=== PATIENT | male | born 1935 | race Caucasian/White ===

== ENCOUNTER 2019-08-18 10:58 | Outpatient (CLI) | payer MEDICARE ==
[~2019-08-18] VITALS: Ht 177.8 cm; Wt 94.1 kg
--- NOTE | ~2019-08-18 | HEMODYNAMI ---
PATIENT:TONY MYERS MEDICAL RECORD: [id number] : 31 LOCATION:[facility] ADMISSION DATE: 08/18/19 Generatedon:08/18/201914:41 Patient name: TONY MYERS Patient #: [id number] SSN: : 1935 Date of study: 08/18/2019 Page: Of Hemodynamic Procedure Report Patient Data Patient Demographics Procedure consent was obtained First Name: TONY Gender: Male Last Name: LUCIA : 1935 Patient #: [id number] Age: 84 year(s) Race: Unknown Additional ID: [id number] Contact details Address: [place] [address] State: [place] City: [place] Zip code: [address] Past Medical History Allergies: No known allergies Admission Admission Data Admission Date: 08/18/2019 Admission Time: 10:58 Arrival Date: 08/18/2019 Arrival Time: 13:00 Admit Source: Other Insurance Payor: Medicare [facility] #: [id number] Height (in.): 61 BSA: 1.94 (m2) Height (cm.): 154.94 BMI: 40.43 (kg/m2) Weight (lbs.): 214 Weight (kg.): 97.07 Lab Results Lab Result Date: 08/18/2019 Lab Result Time: 0:00 Biochemistry Name Units Result Min Max BUN mg/dl 20 --(----)*- 7 18 Creatinine mg/dl 2 --(----)-* 0.6 1.3 eGFR ml/min 34 *-(----)-- 90 120 NONAFRICAN CBC Name Units Result Min Max Hematocrit % 36.6 *-(----)-- 42 54 Hemoglobin g/dl 12.2 *-(----)-- 13.5 17.5 Procedure Procedure Types Cath Procedure Diagnostic Procedure PPM/ICD PPM Dual Implant Sedation Charges Moderate Sedation up to 30 minutes Procedure Description Procedure Date Procedure Date: 08/18/2019 Procedure Start Time: 14:03 Procedure End Time: 14:38 Procedure Staff Name Function Nicholas Sher MD Performing Physician Hugo Chu MD Assisting physician Kaila Villa RT Scrub Thuan Teran RN Nurse Tatum Sandoval RT Monitor Indication Sick Sinus Syndrome Procedure Data Cath Procedure Fluoroscopy Diagnostic fluoroscopy Total fluoroscopy Time: 3.5 time: 3.5 min min Diagnostic fluoroscopy Total fluoroscopy dose: dose: 123.35 mGy 123.35 mGy Estimated blood loss: 10 ml Procedure Complications No complications Procedure Medications Medication Administration Route Dosage 0.9% NaCl I.V. 100 ml/hr Oxygen etCO2 Nasal cannula 2 l/min Lidocaine 1% added to field 20 Ancef (1Gm/50ml NS) I.V.P.B 1 g Ancef Irrigation 1 g (1gm/500ml NS) Versed I.V. 2 mg Fentanyl I.V. 100 mcg Versed I.V. 1 mg Versed I.V. 1 mg Hemodynamics Rest BSA: 1.94 (m2) HGB: 12.2 (g/dl) O2 Consumption: Estimated: 218.6 (ml/min) O2 Con sumption indexed: Estimated:112.68 (ml/min/m) Heart Rate: 68 (bpm) Snapshots Pre Cath Intra NCS Post Cath Vital Signs Time Heart Resp SPO2 etCO2 NIBP (mmHg) Rhythm Pain Sedation Rate (ipm) (%) (mmHg) Status Level (bpm) 13:41:23 69 13 100 27.5 157/83(118) NSR 0 (11) 10(A) , No pain 13:45:41 74 16 100 0 161/81(142) NSR 0 (11) 10(A) , No pain 13:50:01 66 14 100 0 147/77(121) NSR 0 (11) 10(A) , No pain 13:54:17 67 10 100 1.4 151/72(124) NSR 0 (11) 10(A) , No pain 13:58:39 63 18 98 0 127/60(94) NSR 0 (11) 10(A) , No pain 14:02:51 74 19 99 32 127/66(106) NSR 0 (11) 10(A) , No pain 14:06:59 63 14 98 32.7 121/63(111) NSR 0 (11) 10(A) , No pain 14:11:07 70 14 94 0 135/72(96) NSR 0 (11) 9(A) , No pain 14:15:21 90 11 97 0.7 122/69(96) NSR 0 (11) 9(A) , No pain 14:19:28 79 14 98 0 136/71(99) NSR 0 (11) 10(A) , No pain 14:23:42 71 12 99 0 134/71(108) Paced 0 (11) 9(A) , No pain 14:27:54 74 11 97 0 129/73(108) Paced 0 (11) 9(A) , No pain 14:32:02 75 12 100 0 138/79(125) Paced 0 (11) 9(A) , No pain 14:36:12 77 13 99 0 152/87(118) Paced 0 (11) 9(A) , No pain Medications Time Medication Route Dose Verified Delivered Reason Notes Effectiv eness by by 13:48:28 0.9% NaCl I.V. 100 Thuan Thuan Per ml/hr Parul Teran physician RN RN 13:48:37 Oxygen etCO2 2 Thuan Thuan for low 02 Nasal l/min Lorigan Lorigan sats cannula RN RN 13:49:08 Lidocaine added 20ml Thuan Thuan for local 1% to vial Lorigan Lorigan anesthetic field ( x 2 RN RN ) 13:50:52 Ancef I.V.P.B 1 g Thuan Thuan Per (1Gm/50ml Parul Teran physician NS) RN RN 13:51:19 Ancef Topical 1 g Thuan Thuan used for Irrigation ( added Lorigan Lorigan procedure (1gm/500ml to RN RN NS) field ) 14:03:18 Versed I.V. 2 mg Thuan Thuan for Lorigan Lorigan sedation RN RN 14:03:26 Fentanyl I.V. 100 Thuan Thuan for mcg Lorigan Lorigan sedation RN RN 14:06:35 Versed I.V. 1 mg Thuan Thuan for Lorigan Lorigan sedation RN RN 14:20:02 Versed I.V. 1 mg Thuan Thuan for Lorigan Lorigan sedation RN administrative support specialist Log Time Note 12:27:25 Diagnostic Cath Status : Elective 12:27:59 Indication : Sick Sinus Syndrome 12:28:20 Informed consent obtained and on chart 12:29:30 Arrival Date: 08/18/2019 1:00:00 PM 12:30:11 Admit Source: Other 12:30:15 Insurance Payor : Medicare 13:24:44 Patient Height : 61 inches 13:24:59 Patient Weight : 214 lbs 13:30:00 Kaila CARLSON(R) sent for patient. Start room use. 13:38:12 Lab Result : eGFR NONAFRICAN 34 ml/min 13:38:12 Lab Result : Hemoglobin 12.2 g/dl 13:38:12 Lab Result : Creatinine 2 mg/dl 13:38:12 Lab Result : BUN 20 mg/dl 13:38:12 Lab Result : Hematocrit 36.6 % 13:38:29 Patient allergic to No known allergies 13:38:46 Procedure Status PPM/ Gen Change/ Lead Revision/ Temp. 13:39:16 Time tracking: Regular hours (M-F 7:00 - 5:00) 13:39:20 Plan of Care:Hemodynamics will remain stable., Cardiac rhythm will remain stable., Comfort level will be maintained., Respiratory function will remain adequate., Patient/ family verbilizes understanding of procedure., Procedure tolerated without complication., Recovers from procedure without complications.. 13:39:25 Patient received from Pre/Post Procedure Room to CCL 3 Alert and oriented. Tansferred to table in Supine position. 13:39:27 Warm blankets applied, and kristy hugger turned on for patient comfort. 13:39:27 Correct patient and procedure confirmed by team. 13:39:28 Correct patient and procedure confirmed by team. 13:39:29 ECG and BP/O2 sat monitors applied to patient. 13:39:31 Vital chart was started 13:39:42 H&P Date Dictated: 08/15/2019 Within 30 days and on chart.. 13:39:43 Pre-procedure instructions explained to patient. 13:39:44 Pre-op teaching completed and patient verbalized understanding. 13:39:45 Family in waiting room. 13:39:47 Patient NPO since Midnight. 13:39:59 Is the patient allergic to Iodine/contrast media? No. 13:40:00 Was the patient premedicated? N/A 13:40:02 Is patient on blood thinner?No 13:40:04 Patient diabetic? No. 13:40:06 If diabetic: On Metformin? N/A 13:40:15 Patient not . Patient is over age 55. 13:40:17 ----Pre-sedation anethsthesia assessment.---- 13:40:21 Previous problem with sedation/anesthesia? No ? 13:40:22 Snore? Yes 13:40:23 Sleep apnea? Yes 13:40:24 Deviated septum? No 13:40:25 Opens mouth fully? Yes 13:40:26 Sticks out tongue? Yes 13:40:30 Airway obstruction? No ? 13:40:31 Dentures? No ? 13:40:36 Patient pain scale 0/10 ?. 13:40:48 IV patent on arrival in right antecubital with 0.9% NaCl at [facility]. 13:40:54 Lab results completed and on chart. 13:40:57 Stress Test: no; N/A ? 13:41:07 Left chest area was prepped with chlora-prep and draped in sterile fashion 13:41:08 Alarms reviewed by R. N. 13:41:09 Sharps counted by scrub and verified by R.N. 13:41:14 Use device set KARLA PPM 13:41:16 2-0 Ticron Multipack ([id number]) opened to sterile field. 13:41:17 3-0 Vicryl Single Pack [id number] opened to sterile field. 13:41:17 5-0 Monocryl PS2 [id number] opened to sterile field. 13:41:18 Cautery Tip Piece Meat Trimmer opened to sterile field. 13:41:19 Cautery Pushbutton Pencil opened to sterile field. 13:41:19 Mepilex Dressing (947949) opened to sterile field. 13:42:03 Baseline sample Acquired. 13:42:06 Full Disclosure recording started 13:42:14 Rhythm: sinus bradycardia 13:47:42 Medtronic it sales representative SAMANTHA GRANGER present for procedure. 13:48:28 0.9% NaCl 100 ml/hr I.V. was administered by Thuan Teran RN; Per physician; Verbal order read back and verified. 13:48:37 Oxygen 2 l/min etCO2 Nasal cannula was administered by Thuan Teran RN; for low 02 sats; Verbal order read back and verified. 13:49:08 Lidocaine 1% 20ml vial ( x 2 ) added to field was administered by Thuan Teran RN; for local anesthetic; Verbal order read back and verified. 13:50:52 Ancef (1Gm/50ml NS) 1 g I.V.P.B was administered by Thuan Teran RN; Per physician; Verbal order read back and verified. 13:51:19 Ancef Irrigation (1gm/500ml NS) 1 g Topical ( added to field ) was administered by Thuan Teran RN; used for procedure; Verbal order read back and verified. 14:00:01 Pre sharps counted by scrub and verified by RN: Sutures: 7; Sponges: 5; Stick needles: 2; Skin needles: 2; Blade: 1; Cautery: 1 14:00:47 Grounding pad site Left thigh. 14:00:50 Grounding pad site free from injury. 14:01:13 Physician arrived 14:01:14 --------ALL STOP TIME OUT------ 14:01:15 Final Timeout: patient, procedure, and site verified with staff and physician. All members of the team are in agreement. 14:01:20 Left chest site verified by team. 14:01:34 Fire Safety Assessment: A--An alcohol-based skin anteseptic being used preoperatively., B--The operative or invasive procedure is being performed above the xiphoid process or in the oropharynx., C--Open oxygen or nitrous oxide is being used., E--There are other possible contributors. 14:02:50 Physical assessment completed. ASA score P 2 - A patient with mild systemic disease as per Nicholas Sher MD. 14:03:00 Sedation plan: IV Moderate Sedation Medication:Versed, Fentanyl 14:03:06 Procedure started. 14:03:15 Lidocaine 1% was administered to left subclavicular area by Hugo Chu MD . 14:03:18 Versed 2 mg I.V. was administered by Thuan Teran RN; for sedation; Verbal order read back and verified. 14:03:26 Fentanyl 100 mcg I.V. was administered by Thuan Teran RN; for sedation; Verbal order read back and verified. 14:05:21 Incision made to left subclavicular area. 14:05:25 Generator pocket made/opened. 14:06:35 Versed 1 mg I.V. was administered by Thuan Teran RN; for sedation; Verbal order read back and verified. 14:07:39 Left subclavian vein accessed with 7Fr Peel Away Sheath. 14:07:58 Left subclavian vein accessed with 7Fr Peel Away Sheath. 14:08:[address] Generator [id number] opened to sterile field. 14:08:17 Medtronic 4074-52 PPM Lead opened to sterile field. 14:08:17 Medtronic 4574-45 PPM Lead opened to sterile field. 14:11:21 Ventricular lead inserted and advanced. 14:11:27 Atrial lead inserted and advanced. 14:11:37 Ventricular lead positioned. 14:11:44 Atrial lead positioned. 14:16:13 Ventricular lead tested. 14:16:37 Atrial lead tested. 14:20:02 Versed 1 mg I.V. was administered by hTuan Teran RN; for sedation; Verbal order read back and verified. 14:20:43 Peel-a-way sheath was split and removed. 14:20:53 PPM Dual was attached to lead(s) and inserted into pocket. 14:21:15 PPM Dual was interrogated. 14:21:21 PPM Dual was inserted subcutaneously to left chest. 14:22:18 Device pocket was irrigated with Ancef. 14:26:28 Atrial lead attachment was completed with 2-0 ticron. 14:26:36 Ventricular lead attachment was completed with 2-0 ticron. 14:28:08 Subcutaneous closure was completed with 3-0 vicryl plus. 14:28:19 Skin closure was completed with 5-0 monocryl. 14:29:31 Generator was sutured in place with 2-0 ticron. 14:31:25 Parameters-- Generator: Mode: DDDR. Lower Rate: 60bpm. Upper Rate: 120bpm. 14:32:17 Post sharps counted by scrub and verified by RN: Sutures: 7; Sponges: 5; Stick needles: 2; Skin needles: 2; Blade: 1; Cautery: 1 14:32:24 Parameters--Ventricular P/R Wave: 3.9mV. Current: 0.3mA; Threshold: 0.3V; Impedence: 1280OHMS. 14:32:49 Parameters--Atrial P/R Wave: 2.6mV. Current: 0.4mA; Threshold: 0.3V; Impedence: 617OHMS. 14:32:56 Lt Chest incision was dressed with Mepilex dressing. 14:33:04 Procedure ended.(Physican Out) 14:33:13 Fluoroscopy time 03.50 minutes. 14:33:25 Flurop Dose total: 123.35 14:33:25 Fluoroscopy dose: 123.35 mGy 14:33:43 Dose Area Product 1659.77 mGy/cm. 14:33:49 Sharps counted by scrub and verified by R.N. 14:35:08 Insertion/operative site no bleeding no hematoma. 14:35:23 Post Chest area:stable 14:35:30 Post-procedure physical assessment completed. ASA score P 2 - A patient with mild systemic disease as per Nicholas Sher MD. 14:36:19 Post procedure rhythm: paced 14:36:25 Estimated blood loss: 10 ml 14:36:27 Post procedure instruction explained to patient.Patient verbalizes understanding. 14:36:29 Patient needs reinforcement of post procedure teaching. 14:37:19 Procedure type changed to Cath procedure, Diagnostic procedure, PPM/ICD, PPM Dual Implant, Sedation Charges, Moderate Sedation up to 30 minutes 14:37:23 Procedure and supply charges have been captured, reviewed, submitted and are correct. 14:37:58 Procedure Complication : No complications 14:38:05 Vital chart was stopped 14:38:19 Operative report dictated upon procedure completion. 14:38:20 See physician's report for complete and final results. 14:38:26 Report given to Pre/Post Procedure Room. 14:38:30 Patient transfered to Pre/Post Procedure Room with Stretcher. 14:38:33 Procedure ended. 14:38:33 Full Disclosure recording stopped 14:38:36 End room use (Document Last) Device Usage Item Name Manufacture Quantity Catalog Hospital Part Current Minima l Lot# / Number Charge Number Stock Stock Serial# Code 2-0 Ticron Ethicon 0 [id number] 193215 98675 [id number] 5 Multipack ([id number]) 3-0 Vicryl Ethicon 1 [id number] 745651 126816 084803 5 Single Pack [id number] 5-0 Monocryl Ethicon 1 Y495G 858231 849008 766014 5 PS2 Y495G Cautery Tip Microtek 1 [id number] 997141 075754 365810 5 Piece Meat Trimmer [employer] Cautery Microtek 1 [id number] 001539 77585 201586 5 Pushbutton [employer] Inc[employer] Pencil Mepilex Cardinal 1 456239 310215 030143 748749 5 Dressing Health ([id number]) Medtronic Medtronic 1 4074-52 203364 835062 722187 5 [id number] 4074-52 PPM 05-09-2021 Lead Medtronic Medtronic 1 4574-45 420243 232446 444786 5 [id number] 4574-45 PPM 05-13-2021 Lead Medtronic Medtronic 1 [id number] 757430 5130468 [id number] [id number] 01-02-2021 Generator W1DR01 Signature Audit [place] Stage Time Signature Unsigned Intra-Procedure 08/18/2019 Tatum 2:39:46 PM Jaime RT(R) (CV) Intra-Procedure 08/18/2019 Thuan 2:40:18 PM Parul RAMIREZ Intra-Procedure 08/18/2019 Nicholas Canseco 2:40:[address] [facility] [address] [place] [address]
--- NOTE | ~2019-08-18 | OP ---
PATIENT NAME: TONY MYERS MEDICAL RECORD: [id number] :31 LOCATION:D.CAT ADMISSION DATE: SURGEON: HUGO ACOSTA MD DATE OF OPERATION: 08/18/2019 PREOPERATIVE DIAGNOSES: 1. Sick sinus syndrome with pauses. 2. Hypertension. POSTOPERATIVE DIAGNOSES: 1. Sick sinus syndrome with pauses. 2. Hypertension. PROCEDURE: 1. Left subclavian vein dual lead pacemaker placement. 2. Fluoroscopic interpretation. SURGEON: Hugo Acosta MD REPORT OF PROCEDURE: The patient's left chest was prepped and draped in sterile fashion. A 20 mL of 1% lidocaine with epinephrine was infused into the surrounding tissues. A skin incision was made on the left superior lateral chest and a subcutaneous pouch was made over the pectoral fascia. Needle was used to cannulate the left subclavian vein and guidewires were advanced with ease. Using fluoroscopic guidance, we were able to see that the wires were in good position in the venous system. Dilator trocar devices were placed over the wires and the wires and dilators were removed. The leads were advanced through the trocars until they rested in the superior vena cava. At this point, Dr. Campoverde positioned the leads appropriately in the atrium and ventricle. Once the leads were noted to be in good position and functioning appropriately, then they were sutured into place with 2-0 Ti-Cron. The leads were affixed to the pacemaker, which was placed in the subcutaneous pouch and sutured to the pectoral fascia using a single interrupted 2-0 Ti-Cron. The wound was then irrigated out with antibiotic solution. The subcutaneous tissues were reapproximated with interrupted 3-0 Vicryl and the skin was closed with running subcutaneous 5-0 Monocryl. COMPLICATIONS: None. CONDITION: Stable. ANESTHESIA: Local MAC. BLOOD LOSS: Minimal. TRANSINT:[id number] Voice Confirmation ID: [id number] DOCUMENT ID: [id number] OPERATIVE REPORT [id number] QUINCYPATRICIAHUGO BINGHAM MD CC: [id number] DICTATION DATE: 08/18/19 1431 STICK PULLER: 08/18/19 1655 [facility] [address] [place] [address]
[2019-08-18] MEDS ORDERED: FLUTICASONE PRO16 GM NASAL (11:26)
[2019-08-18] MEDS ORDERED: PROTONIX40 MG PO (11:26)
[2019-08-18] MEDS ORDERED: CYCLOBENZAPRINE5 MG PO (11:28)
[2019-08-18] MEDS ORDERED: NAMENDA10 MG PO (11:28)
[2019-08-18] MEDS ORDERED: FLOMAX0.4 MG PO (11:29)
[2019-08-18] MEDS ORDERED: LASIX40 MG PO (11:30)
[2019-08-18] MEDS ORDERED: MIRAPEX0.5 MG PO (11:30)
[2019-08-18] MEDS ORDERED: K-TAB10 MEQ PO (11:31)
[2019-08-18] MEDS ORDERED: MIRAPEX0.25 MG PO (11:31)
[2019-08-18] MEDS ORDERED: REMERON15 MG PO (11:31)
[2019-08-18] MEDS ORDERED: DONEPEZIL HCL10 MG PO (11:32)
[2019-08-18] MEDS ORDERED: GABAPENTIN100 MG PO (11:32)
[2019-08-18] MEDS ORDERED: MELATONIN10 M1 PO (11:33)
[2019-08-18] MEDS ORDERED: LISINOPRIL5 MG PO (11:33)
[2019-08-18] MEDS ORDERED: HYDROCODON-ACE1 EA10 PO (11:34)
[2019-08-18] MEDS ORDERED: ALBUTEROL SULF8.5 GM INH (11:35)
[2019-08-18 11:42] VITALS: BP 106/58; Ht 177.8 cm; Wt 94.1 kg
[2019-08-18 12:06] LABS: BASOPHILS 0.3 % (0-2); EOSINOPHILS 2.9 % (0-7); HEMATOCRIT 36.6 % (42.0-54.0); HEMOGLOBIN 12.2 g/dL (13.5-17.5); IMMATURE GRANULOCYTES 0.1 % (0-5); LYMPHOCYTES 40.5 % (15-50); MCH 32.4 pg (26.0-34.0); MCHC 33.3 g/dL (31.0-37.0); MCV 97.3 fL (80.0-100.0); MEAN PLATELET VOLUME 9.9 fL (7.4-10.4); MONOCYTES 9.7 % (2-11); NEUTROPHILS 46.5 % (40-80); PLATELET COUNT 139 10x3/uL (130-400); RBC 3.76 10x6/uL (4.20-6.10); RDW 13.6 % (11.5-14.5); WBC 8.6 10x3/uL (4.8-10.8)
[2019-08-18 12:19] LABS: ANION GAP 13.2 mmol/L (8-16); CALCIUM 8.3 mg/dL (8.5-10.1); CARBON DIOXIDE 26.4 mmol/L (21.0-32.0); POTASSIUM - SERUM 4.6 mmol/L (3.5-5.1)
[2019-08-18 12:22] LABS: APTT 28.1 SECONDS (22.8-39.4); INR 1.01 (0.85-1.17); PROTIME 13.2 SECONDS (11.6-15.0)
--- NOTE | 2019-08-18 14:45 | NUR ---
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 MONITORS ESTAB. CHILDREN AT BS. SEE ENVIRONMENTAL STUDIES FACULTY MEMBER. ALARMS ON AND C/L IN REACH.
--- NOTE | 2019-08-18 15:00 | NUR ---
PT RESTING QUIETLY. CM - PACED AT 70, B/P 141/74. PPM SITE C/D/I. URINAL PROVIDED AND PT ASSISTED WITH USE. ALARMS ON AND C/L IN REACH.
--- NOTE | 2019-08-18 15:16 | NUR ---
PCXR DONE. SANDWICH TRAY AND SPRITE PROVIDED. VSS. C/L IN REACH.
--- NOTE | 2019-08-18 15:30 | NUR ---
PT ATE ALL OF SANDWICH, DENIES NEEDS. VSS. L CHEST DSG C/D/I. C/L IN REACH.
--- NOTE | 2019-08-18 15:45 | NUR ---
PT RESTING QUIETLY, HR 72, V-PACED, WITH OCC AV-PACED BEATS NOTED. ALARMS ON AND C/L IN REACH.
--- NOTE | 2019-08-18 16:13 | NUR ---
PT WATCHING TV, DENIES NEEDS. VSS. L CHEST DSG C/D/I.
--- NOTE | 2019-08-18 16:30 | NUR ---
PT VOIDED 200CC CLEAR, YELLOW URINE. VSS, DENIES NEEDS. C/L IN REACH.
--- NOTE | 2019-08-18 17:15 | NUR ---
PIV D/C'D INTACT, DSG APPLIED. ALL DISCHARGE INSTRUCTIONS REVIEWED WITH CHILDREN - COPY WITH THEM TO GIVE TO ASSISTED LIVING STAFF. PT ASSISTED WITH GETTING DRESSED. ARM SLING IN PLACE - IMPORTANCE OF L ARM RESTRICTIONS REINFORCED WITH PT.
--- NOTE | 2019-08-18 17:26 | NUR ---
PT D/C'D TO PRIVATE VEHICLE VIA . PT HAS ALL BELONGINGS AND PAPERWORK.
--- NOTE | 2019-08-22 11:19 | OP ---
PATIENT NAME: TONY MERINO MEDICAL RECORD: [id number] :33 LOCATION:D.CAT ADMISSION DATE: SURGEON: MILADIS SORENSON MD DATE OF OPERATION: 08/18/2019 PROCEDURE: Lead portion of permanent pacemaker placement. SURGEON: Hugo Chu MD INDICATION: Sick sinus syndrome with pauses greater than 3 seconds. DESCRIPTION OF PROCEDURE: After left subclavian was cannulated via modified Seldinger technique via Dr. Chu, first, under fluoroscopic guidance, I placed the RV lead in the RV apex without difficulty. After adequate R waves and thresholds were obtained, the right atrial lead was placed in the right atrial appendage without difficulty. After adequate P waves and thresholds were obtained, the leads were attached to appropriate poles of the generator and the pocket was closed via Dr. Chu. IMPRESSION: Successful lead portion of permanent pacemaker placement on Tony Merino. ESTIMATED BLOOD LOSS: Normal. DISPOSITION: To floor, stable. COMPLICATIONS: None. TRANSINT:[id number] Voice Confirmation ID: [id number] DOCUMENT ID: [id number] MILADIS SORENSON MD at 1119 CC: [id number] DICTATION DATE: 08/18/19 1428 PROPERTY WORKER: 08/18/19 1637 DEP CLI 08/18/19 [id number] [place] [address]
== END 2019-08-18 17:27 | disposition home or self-care (01) ==
LOC: D.CATH 10:58
PROVIDERS: ATTEND Internal Medicine Interventional Cardiology
DX: I49.5 Sick sinus syndrome (principal); I10 Essential (primary) hypertension; I44.1 Atrioventricular block, second degree

== ENCOUNTER 2019-12-31 21:59 | Inpatient (IN) | payer MEDICARE ==
[~2019-12-31] VITALS: Ht 177.8 cm; Wt 95.9 kg
--- NOTE | ~2019-12-31 | EC ---
PATIENT:TONY MYERS DATE OF SERVICE: 01/01/20 SEX: M MEDICAL RECORD: [id number] DATE OF : [birth year] LOCATION:D.M2 D.212 AGE OF PATIENT: 84 ADMISSION DATE: 01/01/20 REFERRING PHYSICIAN: INTERPRETING PHYSICIAN: ILYA WALKER MD ECHOCARDIOGRAM REPORT ECHO CHARGES 4 ECHO COMPLETE Date: 01/01/20 CLINICAL DIAGNOSIS: CHF HX OF PACEMAKER ECHOCARDIOGRAPHIC MEASUREMENTS (adult normal given) AC root (d.<3.7cm) 3.3 cm LV Septum d (<1.2 cm> 1.5 cm Valve Excursion 1.5 cm LV Septum (systole) 1.7 cm Left Atria (s.<4.0cm> 3.9 cm LVPW d(<1.2cm) 1.4 cm RV (d.<2.3cm) 4.2 cm LVPW (sytole) 1.7 cm LV diastole(<5.6CM) 5.9 cm MV E-F(>70mm/sec) cm LV systole 3.9 cm LVOT Diameter 1.8 cm MV exc.(>10mm) 1.4 cm Est.ejection fraction (50-75%) % DOPPLER: LVIT cm/sec A 89.0 cm/sec E 68.0 cm/sec LA cm/sec RVSP 33 mmHg LVOT 126 cm/sec AOP1/2T 599 m/s Asc. Ao 247 cm/sec RVOT 79 cm/sec RA cm/sec PA 104 cm/sec AV Gradient Peak 24.32mmHg AV Mean 14.01mmHg AV Area 2.1 cm MV Gradient Peak 5.52 mmHg MV Mean 2.26 mmHg MV Area cm COMMENTS: Mixer Machine Feeder: 2 ANGIE SMITH Radio Survey Worker: 4 Dr. Walker TAPE# PACS Pericardial Effusion N DATE OF SERVICE: PROCEDURE: Transthoracic echocardiogram. FINDINGS: The left ventricle is mildly dilated with left ventricular hypertrophy. The overall ejection fraction is 45% to 50%. There are no obvious regional wall motion abnormalities. The patient has inflow characteristics consistent with diastolic dysfunction. Left atrium appears to be normal size and function. ECHOCARDIOGRAM REPORT [id number] TONY MYERS The aortic valve has thickened aortic leaflets. There is mildly elevated peak gradient across the aortic valve. There is mild aortic insufficiency. The valve appears to be at least mildly stenotic if not moderately stenotic. The mitral valve has normal structure and function. Tricuspid valve has normal structure and function. There is trace to mild tricuspid regurgitation. The right ventricular systolic pressure is 33 mmHg. There is a pacer wire and artifact seen. The right ventricle is dilated with normal function. Right atrium is dilated. There is no significant pericardial effusion. Overall, this is a difficult study. Aortic valve was not well demonstrated. Depending on clinical situation further testing may be helpful, but by visual estimate the patient's aortic stenosis does not appear to be severe. TRANSINT:[id number] Voice Confirmation ID: [id number] DOCUMENT ID: [id number] ILYA WALKER MD CC: [id number] DICTATION DATE: 01/01/20 1616 GOVERNMENT RELATIONS ANALYST: 01/01/20 2347 ADM IN [facility] [address] [place] [address]
[~2019-12-31 21:59] MED LIST: ALBUTEROL SULF8.5 GM INH; CYCLOBENZAPRINE5 MG PO; DONEPEZIL HCL10 MG PO; FLOMAX0.4 MG PO; FLUTICASONE PRO16 GM NASAL; GABAPENTIN100 MG PO; HYDROCODON-ACE1 EA10 PO; K-TAB10 MEQ PO; LASIX40 MG PO; LISINOPRIL5 MG PO; MELATONIN10 M1 PO; MIRAPEX0.25 MG PO; MIRAPEX0.5 MG PO; NAMENDA10 MG PO; PROTONIX40 MG PO; REMERON15 MG PO
[2019-12-31 22:26] LABS: BASOPHILS 0.2 % (0-2); EOSINOPHILS 3.8 % (0-7); HEMOGLOBIN 10.2 g/dL (13.5-17.5); IMMATURE GRANULOCYTES 1.4 % (0-5); LYMPHOCYTES 28.2 % (15-50); MCH 32.4 pg (26.0-34.0); MCHC 32.9 g/dL (31.0-37.0); MCV 98.4 fL (80.0-100.0); MEAN PLATELET VOLUME 9.9 fL (7.4-10.4); MONOCYTES 10.7 % (2-11); NEUTROPHILS 55.7 % (40-80); PLATELET COUNT 117 10x3/uL (130-400); RBC 3.15 10x6/uL (4.20-6.10); RDW 13.6 % (11.5-14.5); WBC 12.9 10x3/uL (4.8-10.8)
[2019-12-31 22:33] LABS: CALC OSMOLALITY 295 mosm/kg (275-300); CARBON DIOXIDE 22.5 mmol/L (21.0-32.0); CHLORIDE - SERUM 101 mmol/L (98-107); CREATININE - SERUM 7.5 mg/dL (0.6-1.3); GLUCOSE 128 mg/dL (74-106); POTASSIUM - SERUM 4.8 mmol/L (3.5-5.1); SODIUM 133 mmol/L (136-145); UREA NITROGEN 91 mg/dL (7-18); eGFR NON AFRICAN AMERICAN 7 mL/min (90-120)
[2019-12-31 22:34] LABS: APTT 28.3 SECONDS (22.8-39.4)
[2019-12-31 22:38] LABS: INR 1.08 (0.85-1.17)
[2019-12-31 22:49] LABS: ALBUMIN 2.7 g/dL (3.4-5.0); ALKALINE PHOSPHATASE 110 U/L (30-120); ALT (SGPT) 18 U/L (10-68); BILIRUBIN - TOTAL 0.25 mg/dL (0.2-1.3); CKMB 2.1 U/L (0.0-3.6); CREATINE KINASE 67 UL (21-232); PRO BNP 493 pg/mL (0-450); PROTEIN - SERUM 6.1 g/dL (6.4-8.2)
[2019-12-31 22:51] LABS: TROPONIN-I < 0.017 ng/mL (0.000-0.060)
[2019-12-31 23:11] LABS: C-REACTIVE PROTEIN 2.9 mg/dL (0.0-0.9)
[2019-12-31 23:42] VITALS: BP 82/41
[2020-01-01] VITALS (7 sets, daily range): BP systolic 94–121; BP diastolic 43–55; BMI 28.7
--- NOTE | 2020-01-01 02:13 | NUR ---
PT ARRIVED VIA STRETCHER FROM ER. NO DISTRESS NOTED. PT DENIED ANY DISCOMFORT. PT ALERT, ORIENTED TO PERSON, AND PLACE. REORIENTED TO TIME AND SITUATION. PACED RHYTHM PER CM HR 76. IV TO RFA SL. LUNGS DIMINISHED IN BASES BILAT. SR UP X2,CALL LIGHT WITHIN REACH AND BED ALARM ON.
--- NOTE | 2020-01-01 04:29 | NUR ---
PT RESTING WITH EYES CLOSED. RESP EVEN AND REGULAR. SR UP X2, CALL LIGHT WITHIN REACH AND BED ALARM ON.
[2020-01-01] MEDS ORDERED: METOPROLOL TART25 MG PO (04:47)
[2020-01-01] MEDS ORDERED: ROPINIROLE HCL2 MG PO (04:49)
[2020-01-01] MEDS ORDERED: TRAZODONE HCL150 MG PO (04:51)
[2020-01-01] MEDS ORDERED: ACETAMINOPHEN325 MG PO (04:55)
[2020-01-01] MEDS ORDERED: MIRALAX17 GM PO (04:56)
[2020-01-01] MEDS ORDERED: MILK OF MAGNESI30 ML PO (04:57)
--- NOTE | 2020-01-01 05:52 | NUR ---
PT INCONTINENT OF URINE AND STOOL INCONTINENT CARE DONE. PT TOLERATED ACTIVITY WELL. NEEDS MET; WILL CONTINUE TO MONITOR.
--- NOTE | 2020-01-01 07:00 | NUR ---
RECEIVED REPORT. ASSUMED CARE OF PATIENT. CALL LIGHT WITHIN REACH. PATIENT RESTING WITH EYES CLOSED. RESP EVEN AND UNLABORED. WHITE BOARD UPDATED, BEDSIDE SHIFT REPORT COMPLETE. NO DISTRESS.
--- NOTE | 2020-01-01 11:40 | NUR ---
SUPERVISOR ROUGH END AT BEDSIDE. NO DISTRESS. FRESH ICE WATER PROVIDED.
--- NOTE | 2020-01-01 12:35 | NUR ---
IV FLUIDS INITIATED AT THIS TIME. NO DISTRESS. LAB AT BEDSIDE FOR LAB DRAW. CALL LIGHT WITHIN REACH.
[2020-01-01 12:50] LABS: BASOPHILS 0.1 % (0-2); EOSINOPHILS 3.9 % (0-7); HEMATOCRIT 32.8 % (42.0-54.0); HEMOGLOBIN 10.6 g/dL (13.5-17.5); IMMATURE GRANULOCYTES 1.4 % (0-5); LYMPHOCYTES 29.1 % (15-50); MCH 31.8 pg (26.0-34.0); MCHC 32.3 g/dL (31.0-37.0); MCV 98.5 fL (80.0-100.0); MEAN PLATELET VOLUME 10.2 fL (7.4-10.4); NEUTROPHILS 55.5 % (40-80); PLATELET COUNT 124 10x3/uL (130-400); RBC 3.33 10x6/uL (4.20-6.10); RDW 13.6 % (11.5-14.5); WBC 9.9 10x3/uL (4.8-10.8)
[2020-01-01] MEDS ORDERED: HYDROCODON-ACE1 EA10 PO (12:58)
[2020-01-01 13:00] LABS: ANION GAP 16.8 mmol/L (8-16); CARBON DIOXIDE 22.6 mmol/L (21.0-32.0); CREATININE - SERUM 8.2 mg/dL (0.6-1.3); POTASSIUM - SERUM 5.4 mmol/L (3.5-5.1)
--- NOTE | 2020-01-01 16:00 | NUR ---
HAT FORMING MACHINE FEEDER AT BEDSIDE FOR US OF THYROID AT THIS TIME. NO DISTRESS.
--- NOTE | 2020-01-01 16:57 | NUR ---
ATTEMPTED TO COLLECT UA AT THIS TIME, SPECIMEN CONTAMINATED WITH STOOL.
--- NOTE | 2020-01-01 19:23 | NUR ---
INITIAL ROUNDS COMPLETED. ASSISTED PT TO BR. VOIDED 350CC OF YELLOW URINE. ASSISTED BACK TO BED. SR UP X2, CALL LIGHT WITHIN REACH AND BED AALRM ON.
[2020-01-01 19:52] LABS: BILIRUBIN NEGATIVE (NEGATIVE); GLUCOSE NEGATIVE (NEGATIVE); KETONE NEGATIVE (NEGATIVE); NITRITE NEGATIVE (NEGATIVE); UROBILINOGEN NORMAL (NORMAL)
[2020-01-01 20:03] LABS: CREATININE - URINE 99.8 mg/dL (30-125); PRO/CRE RATIO URINE 0.2 mg/g; PROTEIN - URINE 24.1 mg/dL (0.0-11.9)
--- NOTE | 2020-01-01 21:46 | HP ---
PATIENT: TONY MYERS MEDICAL RECORD: [id number] ACCOUNT: [id number] LOCATION:[address] : 31 ADMISSION DATE: 01/01/20 PCP: No PCP HISTORY AND PHYSICAL EXAMINATION DATE OF ADMISSION: 01/01/2020 CHIEF COMPLAINT: Weakness, shortness of breath, and atrial fibrillation. HISTORY OF PRESENT ILLNESS: This is an 84-year-old white male, who was brought from an assisted living facility in [place] via EMS yesterday afternoon/evening for increased weakness and shortness of breath. The patient was recently admitted to mt in a hospital earlier this week and diagnosed with aspiration pneumonia. He was discharged back to assisted living on . Reportedly done okay until yesterday when he started having increased weakness and shortness of breath. He was brought over via EMS and reportedly enroute, his blood pressure went down to 82/46, his heart rate was 122 with atrial fibrillation. By the time he arrived to the Emergency Department at [facility], his heart rate was 72 and regular with a paced rhythm. Workup in the Emergency Department, chest x-ray did not show anything acute. His D-dimer was a little elevated and a V/Q scan was done, it was negative for PE, but there was reportedly "significant airway disease", more on the left side. Most significant finding was BUN 91 and creatinine 7.5. Lactic acid was 1.1. ProBNP 493. He is admitted for further evaluation. PAST MEDICAL AND SURGICAL HISTORY: (Most of this is obtained from the son at bedside), he has osteoarthritis, degenerative disc disease throughout his spine, history of CHF, approximately 4 years ago. He is followed by [facility]. 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 He has restless leg syndrome, prostate cancer status post radiation therapy, a questionable history of Parkinson's disease. He has a diagnosis of restrictive lung disease, reflux, thrombocytopenia. He has a diagnosis of Alzheimer's dementia, depression, BPH. PAST SURGICAL HISTORY: Pacemaker in 08/18/2019 here at [facility]. He had right knee arthroscopy approximately 2 years ago and back surgery back in the 1960s. DRUG ALLERGIES: None known. HOME MEDICATIONS: He takes Protonix 40 mg every morning, Flonase nasal spray daily, Namenda 10 mg twice a day, Flexeril 5 mg twice a day, Flomax 0.4 twice a day, Lasix 40 mg once a day, potassium 10 mEq once a day, metoprolol tartrate 25 mg once a day, Requip 2 mg at bedtime, trazodone 50 mg at bedtime, gabapentin 200 mg at bedtime, Aricept 10 mg in the evening, melatonin 10 mg at bedtime, lisinopril 5 mg once a day. He gets hydrocodone 10 p.r.n. pain, albuterol inhaler p.r.n. wheeze, MiraLax p.r.n. constipation, milk of magnesia p.r.n., and Mucinex p.r.n. DRUG ALLERGIES: None known. SOCIAL HISTORY: He is , retired. Son says he was basically placed on disability due to a diagnosis of ALS back in the 1960s, but this was the wrong diagnosis. He lives in assisted living in [place] for about a year. HISTORY AND PHYSICAL [id number] TONY MYERS FAMILY HISTORY: Unknown. HABITS: Former smoker. REVIEW OF SYSTEMS: GENERAL: No major weight changes. HEENT: No particular sinus or allergy problems. RESPIRATORY: He has this diagnosis of restrictive lung disease. GASTROINTESTINAL: He has had some reflux. GENITOURINARY: History of prostate cancer treated with radiation, about 18 years ago, and enlarged prostate. MUSCULOSKELETAL: He has degenerative disc disease in his neck and down throughout his spine. He has arthritic aches and pains. NEUROLOGIC: He has a diagnosis of Parkinson's, though I see no tremor and is on no medicines for it right now. He has a history of dementia. PSYCHIATRIC: Possible depression. PHYSICAL EXAMINATION: VITAL SIGNS: Temperature 97.3, pulse 72, respirations 18, blood pressure 110/51, O2 sat is 100%. GENERAL: He is awake and alert. He does not appear in acute distress. He has some problems answering some questions. HEENT: Unremarkable. NECK: Supple. No JVD or bruit. HEART: Regular rate and rhythm. LUNGS: Fairly clear. ABDOMEN: Soft, flat, nontender. EXTREMITIES: No edema. NEUROLOGIC: Cranial nerves appear intact. No focal motor or sensory deficits. His memory is questionable. DIAGNOSTIC DATA: Chest x-ray single view showed pacemaker on the left. Heart is normal in size. Vascularity normal. No active disease. V/Q scan, negative for PE. There is a significant "airway disease", left greater than right. EKG shows paced rhythm, rate 72. LABORATORY DATA: D-dimer elevated at 0.84. CBC with a white count of 12,900, hemoglobin 10.2, hematocrit 31, platelets number 117,000. Basic metabolic panel: Sodium 133, potassium 4.8, chloride 101, CO2 of 22.5, BUN 91, creatinine 7.5, glucose 128, calcium 7.0, lactic acid 1.1. INR 1.08. Liver functions are normal. ProBNP 493. C-reactive protein 2.9. ASSESSMENT: 1. Acute renal failure. 2. Unsure of the patient's baseline creatinine. 3. Recent hospitalization for aspiration pneumonia in [facility]. 4. Four months status post pacemaker placement. 5. History of dementia. PLAN: We are trying to get records from the hospital in [place], the patient's son's works there and she is trying to get those results now. Nephrology has been consulted. Cardiology has been consulted. We need to see his baseline numbers. Near the end of the interview with the patient and his son, the son states he has been seeing the doctor in [place] and Dr. Conley's name did come up on some paperwork. We will check tomorrow to see if Dr. Conley has any HISTORY AND PHYSICAL [id number] TNOY MYERS records and if he is seeing him, we may have Dr. Conley's service assume the patient's care. I will check on that tomorrow. Other tests and procedures as warranted. ADDENDUM We have gotten some records from the [facility] showing his creatinine there ranged anywhere from 1.7 up to 2.0, which is about his baseline as far as we can see. The patient had a CT of his chest without contrast on 12/25/2019 showed enlarged heart, lung thompson appear clear at that time, but there was an incidental finding of a left thyroid mass/enlargement, recommended a followup ultrasound of that. These records are all going to be placed in patient's chart and I have reviewed these with Dr. Marie today. TRANSINT:[id number] Voice Confirmation ID: [id number] DOCUMENT ID: [id number] AMI ESCOBEDO MD at 2146 CC: [id number] DICTATION DATE: 01/01/20 1359 MARSHMALLOW RUNNER: 01/01/20 1617 ADM IN [facility] [address] [id number]
--- NOTE | 2020-01-01 22:25 | NUR ---
ASSESSMENT COMPLETED AT 1945 HRS. VSS. PACED RHYTHM PER CMHR 71. PT ALERT, ORIENTED TO PERON ONLY. REORIENTED TO PLACE, TIME AND SITUATION. FOLLOWS COMMANDS WELL. IV TO R FA WITH NS AT 75CC/HR. IV PATENT. LUNGS DIMINISHED IN BASES BILAT. FERNANDEZ. PALPABLE PERIPHERAL PULSES. PM MEDS GIVEN PER ORDERS. PT CURRENTLY RESTING WITH EYES CLOSED. RESP EVEN AND REGULAR. SR UP X2,CALL LIGHT WITHN REACH AND BED ALARM ON.
[2020-01-02 00:28] VITALS: BP 101/41
--- NOTE | 2020-01-02 02:51 | NUR ---
PT RESTING WITH EYES CLOSED. RESP EVEN AND REGULAR. SR UP X2, CALL LIGHT WITHIN REACH AND BED ALARM ON.
[2020-01-02 04:06] VITALS: BP 110/40
--- NOTE | 2020-01-02 04:27 | NUR ---
PT AWAKE, DENIES ANY DISCOMFORT. DENIES JOSEPH TO USE THE BATHROOM. SR UP X2,CALL LIGHT WITHIN REACH AND BED ALARM ON.
[2020-01-02 05:46] LABS: BASOPHILS 0.1 % (0-2); EOSINOPHILS 2.6 % (0-7); HEMATOCRIT 29.7 % (42.0-54.0); HEMOGLOBIN 9.6 g/dL (13.5-17.5); IMMATURE GRANULOCYTES 1.5 % (0-5); LYMPHOCYTES 26.9 % (15-50); MCH 31.7 pg (26.0-34.0); MCHC 32.3 g/dL (31.0-37.0); MEAN PLATELET VOLUME 10.1 fL (7.4-10.4); MONOCYTES 11.7 % (2-11); NEUTROPHILS 57.2 % (40-80); PLATELET COUNT 111 10x3/uL (130-400); RBC 3.03 10x6/uL (4.20-6.10); RDW 13.6 % (11.5-14.5); WBC 9.6 10x3/uL (4.8-10.8)
--- NOTE | 2020-01-02 06:18 | NUR ---
PT RESTED WELL DURNG SHIFT. VSS. PT DENIED ANY DISCOMFORT. NEEDS MET; WILL CONTINUE TO MONITOR.
[2020-01-02 06:24] LABS: ANION GAP 19.2 mmol/L (8-16); CARBON DIOXIDE 17.1 mmol/L (21.0-32.0); CREATININE - SERUM 8.3 mg/dL (0.6-1.3); MAGNESIUM - SERUM 2.1 mg/dL (1.8-2.4); POTASSIUM - SERUM 5.3 mmol/L (3.5-5.1)
[2020-01-02 06:25] LABS: PHOSPHOROUS 9.5 mg/dL (2.5-4.9)
[2020-01-02 06:27] LABS: CALCIUM 6.4 mg/dL (8.5-10.1)
--- NOTE | 2020-01-02 07:00 | NUR ---
RECEIVED REPORT. ASSUMED CARE OF PATIENT. CALL LIGHT WITHIN REACH. BED ALARM PATENT. BEDSIDE SHIFT REPORT COMPLETE. WHITE BOARD UPDATED. PATIENT RESTING IN BED WITH EYES CLOSED. RESP EVEN AND UNLABORED. NO DISTRESS.
--- NOTE | 2020-01-02 08:54 | NUR ---
CALLED DUE TO PATIENT IS FOLLOWED BY IN [facility] AND WOULD LIKE TO KNOW IF [facility] WILL ASSUME CARE OF THEIR CLINIC PATIENT. PAGED JEANNINE WOODS AND CURRENTLY WAITING FOR A RESPONSE SO THIS YOUTH OFFICER CAN CALL BACK AND LET HIM KNOW IF [facility] WILL ASSUME CARE OF THE PATIENT.
--- NOTE | 2020-01-02 10:22 | NUR ---
PATIENTS DAUGHTER IN LAW CALLED TO CHECK ON THE PATIENT. REPORT PROVIDED.
[2020-01-02 10:33] VITALS: BP 97/43
[2020-01-02 13:23] VITALS: Ht 177.8 cm; Wt 95.9 kg
[2020-01-02 14:24] VITALS: BP 107/44
--- NOTE | 2020-01-02 14:42 | NUR ---
SODIUM BICARB INITIATED AT THIS TIME.
--- NOTE | 2020-01-02 14:52 | NUR ---
NABICAR INITIATED AT THIS TIME. NO DISTRESS.
--- NOTE | 2020-01-02 17:30 | NUR ---
ASSISTED PATIENT OOB TO RESTROOM. PATIENT INCONTINENT OF STOOL. AMBUALTES WITH ASSIST WELL. NO DISTRESS.
--- NOTE | 2020-01-02 19:51 | NUR ---
RPEORT RECEIVED AND ROUNDING COMPLETE. PATIENT LAYING IN BED IN LOW FOWLERS POSITION. ASSISTED NURSING HOME MANAGER IN CHANGING PATIENT HE IS INCONT. OF BOWEL AND BLADDER. PATIENT WEARNING NASAL CANNULA WITH O2 AT 2L. PIV TO THE RIGHT FOREARM WITH FLUIDS RUNNING, PATENT NO S/SX OF INFILTRATION. PATIENT A&O AND ABLE TO HELP WITH ROLLING WHEN CHANGED. NO OTHER NEEDS AT THIS TIME. CALL LIGHT WITHIN REACH AND BED IN LOWEST LOCKED POSITON. NO S/SX OF DISTRESS.
[2020-01-02 20:29] VITALS: BP 114/50
[2020-01-03 00:33] VITALS: BP 114/52
[2020-01-03 05:51] VITALS: BP 117/54
[2020-01-03 07:13] LABS: BASOPHILS 0.1 % (0-2); EOSINOPHILS 0.7 % (0-7); HEMATOCRIT 29.6 % (42.0-54.0); HEMOGLOBIN 9.6 g/dL (13.5-17.5); IMMATURE GRANULOCYTES 0.7 % (0-5); LYMPHOCYTES 16.5 % (15-50); MCH 31.7 pg (26.0-34.0); MCHC 32.4 g/dL (31.0-37.0); MCV 97.7 fL (80.0-100.0); MEAN PLATELET VOLUME 10.3 fL (7.4-10.4); MONOCYTES 10.7 % (2-11); NEUTROPHILS 71.3 % (40-80); PLATELET COUNT 109 10x3/uL (130-400); RBC 3.03 10x6/uL (4.20-6.10); RDW 13.7 % (11.5-14.5); WBC 10.6 10x3/uL (4.8-10.8)
[2020-01-03 07:41] LABS: CREATININE - SERUM 8.5 mg/dL (0.6-1.3); MAGNESIUM - SERUM 2.1 mg/dL (1.8-2.4); PHOSPHOROUS 8.6 mg/dL (2.5-4.9); POTASSIUM - SERUM 5.3 mmol/L (3.5-5.1)
[2020-01-03 07:44] LABS: ANION GAP 17.2 mmol/L (8-16); CARBON DIOXIDE 22.1 mmol/L (21.0-32.0)
[2020-01-03 07:46] LABS: CALCIUM 6.6 mg/dL (8.5-10.1)
--- NOTE | 2020-01-03 08:10 | NUR ---
RECEIVED VERBAL ORDERS FOR 2GM CALCIUM GLUCONATE IV ONE TIME FOR CRITICAL LOW CALCIUM. WILL CTM.
[2020-01-03 09:24] VITALS: BP 114/57
--- NOTE | 2020-01-03 09:51 | NUR ---
16FR JACKSON CATH PLACED FOR ACUTE RETENTION PER REQUEST. IMMEDIATE 700ML OF YELLOW URINE RETURN. STAT ANTOINETTE IN PLACE. SPECIMEN COLLECTED AND SENT TO LAB. WILL CTM.
--- NOTE | 2020-01-03 09:55 | NUR ---
DURING AM MED PASS DAUGHTER ENTERED THE ROOM ANGRILY STATING THAT WE WERE NOT DOING ANYTHING FOR HER FATHER AND DEMANDED TO KNOW WHAT WAS GOING ON. 30 MINUTES WERE SPENT REASSURING AND INSTRUCTING THE FAMILY ON DISEASE PROCESS, INTERVENTIONS, AND MEDICATIONS. DAUGHTER CONTINUED TO BE RUDE AND DEGRADING WHILE QUESTIONING MINE AND THE DOCTORS REASONING WHILE TAKING NOTES ON HER PHONE OF LABS, MEDS, AND MORE. JACKSON IN PLACE AND DRAINING URINE. PATIENT PLEASED WITH LEVEL OF CARE RECEIVED. WILL CTM.
[2020-01-03 10:21] LABS: CREATININE - URINE 94.7 mg/dL (30-125); PRO/CRE RATIO URINE 0.4 mg/g; PROTEIN - URINE 34.5 mg/dL (0.0-11.9)
[2020-01-03 13:06] VITALS: BP 109/48
[2020-01-03 15:09] LABS: ANION GAP 15.4 mmol/L (8-16); CARBON DIOXIDE 23.9 mmol/L (21.0-32.0); CREATININE - SERUM 8.3 mg/dL (0.6-1.3); POTASSIUM - SERUM 5.3 mmol/L (3.5-5.1)
[2020-01-03 15:23] LABS: CALCIUM 6.9 mg/dL (8.5-10.1)
[2020-01-03 18:00] VITALS: BP 98/43
[2020-01-03 20:00] VITALS: BP 108/46
[2020-01-04] VITALS: BP 98/59
--- NOTE | 2020-01-04 03:18 | NUR ---
I have reviewed this patient and I concur with the Shift Assessment completed by the Licensed Practical Nurse today this shift.
[2020-01-04 04:00] VITALS: BP 100/53
[2020-01-04 06:19] LABS: BASOPHILS 0.1 % (0-2); EOSINOPHILS 1.7 % (0-7); HEMATOCRIT 27.8 % (42.0-54.0); HEMOGLOBIN 9.1 g/dL (13.5-17.5); IMMATURE GRANULOCYTES 0.6 % (0-5); LYMPHOCYTES 25.6 % (15-50); MCH 31.8 pg (26.0-34.0); MCHC 32.7 g/dL (31.0-37.0); MCV 97.2 fL (80.0-100.0); MEAN PLATELET VOLUME 10.3 fL (7.4-10.4); PLATELET COUNT 103 10x3/uL (130-400); RBC 2.86 10x6/uL (4.20-6.10); RDW 13.6 % (11.5-14.5); WBC 8.2 10x3/uL (4.8-10.8)
[2020-01-04 06:48] LABS: ANION GAP 16.3 mmol/L (8-16); CALCIUM 7.3 mg/dL (8.5-10.1); CARBON DIOXIDE 22.7 mmol/L (21.0-32.0); CREATININE - SERUM 8.2 mg/dL (0.6-1.3); PHOSPHOROUS 7.6 mg/dL (2.5-4.9)
--- NOTE | 2020-01-04 07:33 | NUR ---
REPORT RECIEVED. PT LYING SEMI FOWLERS IN BED. RR EVEN AND UNLABORED ON 2L NC. HE HAS A R FA PIV INFUSING D5NS@75. BED LOCKED AND IN LOWEST POSITION, CALL LIGHT WITHIN REACH. JACKSON DRAINING URINE. WILL CTM
[2020-01-04 09:56] VITALS: BP 116/46
--- NOTE | 2020-01-04 13:19 | NUR ---
Nutrition Follow-up: Pt reports eating <50% of breakfast this AM. Family states that he has difficulty feeding himself. Did not remember receiving Nepro previously to try; agreed to receive for lunch today. Noted awaiting renal re: dialysis. Diet: Renal, Mech Soft PO intake: 50% avg yesterday Wt: 211# (01/02) Last BM: 01/02 Labs noted: K+ 5.0, Glu 108, Ca 7.3, PO4 7.6 Meds noted: D5NS @ 75, Protonix -Encourage PO intake and honor food preferences within diet restrictions; rec staff assistance with meals. -Nepro sent with lunch today for pt trial. -Monitor wt; noted daily wts ordered. -RD following.
[2020-01-04 13:58] VITALS: BP 124/67
[2020-01-05] VITALS: BP 118/71
[2020-01-05 06:27] LABS: BASOPHILS 0.1 % (0-2); EOSINOPHILS 1.7 % (0-7); HEMATOCRIT 27.4 % (42.0-54.0); HEMOGLOBIN 8.9 g/dL (13.5-17.5); IMMATURE GRANULOCYTES 0.2 % (0-5); LYMPHOCYTES 19.3 % (15-50); MCH 31.6 pg (26.0-34.0); MCHC 32.5 g/dL (31.0-37.0); MCV 97.2 fL (80.0-100.0); MEAN PLATELET VOLUME 9.9 fL (7.4-10.4); MONOCYTES 10.5 % (2-11); NEUTROPHILS 68.2 % (40-80); PLATELET COUNT 106 10x3/uL (130-400); RBC 2.82 10x6/uL (4.20-6.10); RDW 13.3 % (11.5-14.5); WBC 8.4 10x3/uL (4.8-10.8)
[2020-01-05 06:56] LABS: ANION GAP 14.5 mmol/L (8-16); CALCIUM 7.9 mg/dL (8.5-10.1); CARBON DIOXIDE 22.5 mmol/L (21.0-32.0); CREATININE - SERUM 7.8 mg/dL (0.6-1.3); MAGNESIUM - SERUM 2.1 mg/dL (1.8-2.4); PHOSPHOROUS 7.1 mg/dL (2.5-4.9)
[2020-01-05 08:00] VITALS: BP 115/50
[2020-01-05 11:00] VITALS: BP 127/43
[2020-01-05 15:00] VITALS: BP 135/60
[2020-01-05 20:00] VITALS: BP 141/63
[2020-01-06] VITALS: BP 116/45
[2020-01-06 04:00] VITALS: BP 133/64
--- NOTE | 2020-01-06 04:35 | NUR ---
CLEANSED PT WITH MOIST BATH WIPES, APPLIED DEODERANT, LINENS AND GOWN CHANGED. REPOSITIONED IN BED FOR COMFORT.
--- NOTE | 2020-01-06 05:05 | NUR ---
PIV SITED TO LEFT FOREARM, 20 GUAGE, FISRT ATTEMPT, PT TOLERATED WELL.
[2020-01-06 05:27] LABS: BASOPHILS 0.1 % (0-2); EOSINOPHILS 1.7 % (0-7); HEMATOCRIT 28.2 % (42.0-54.0); HEMOGLOBIN 9.1 g/dL (13.5-17.5); IMMATURE GRANULOCYTES 0.3 % (0-5); LYMPHOCYTES 15.6 % (15-50); MCH 31.7 pg (26.0-34.0); MCHC 32.3 g/dL (31.0-37.0); MCV 98.3 fL (80.0-100.0); MEAN PLATELET VOLUME 10.5 fL (7.4-10.4); MONOCYTES 10.8 % (2-11); NEUTROPHILS 71.5 % (40-80); RBC 2.87 10x6/uL (4.20-6.10); RDW 13.5 % (11.5-14.5); WBC 9.7 10x3/uL (4.8-10.8)
[2020-01-06 05:48] LABS: PLATELET COUNT 128 10x3/uL (130-400)
[2020-01-06 05:57] LABS: ANION GAP 14.3 mmol/L (8-16); CALCIUM 7.6 mg/dL (8.5-10.1); CARBON DIOXIDE 22.6 mmol/L (21.0-32.0); CREATININE - SERUM 7.1 mg/dL (0.6-1.3); PHOSPHOROUS 5.9 mg/dL (2.5-4.9); POTASSIUM - SERUM 4.9 mmol/L (3.5-5.1)
--- NOTE | 2020-01-06 07:30 | NUR ---
PT RECEIVED SLEEP IN BED. ASSISTED UP IN BED FOR BREAKFAST. PT STATES NOT SLEPT WELL.
[2020-01-06 09:00] VITALS: BP 122/49
--- NOTE | 2020-01-06 09:56 | NUR ---
PT AMBULATED IN HALLS WITH THERAPY, NOW IN CHAIR.
--- NOTE | 2020-01-06 10:18 | MORECARE ---
CASE MANAGEMENT DISCHARGE SUMMARY PATIENT: TONY MYERS UNIT: [id number] ADM DATE: 01/01/20 AGE: 84 : 33 SEX: M ROOM/BED: D.2121 AUTHOR: ROSENDO OLGUIN PHYSICIAN: REFERRING PHYSICIAN: SHAQUILLE WILLIS MD DATE OF SERVICE: 01/06/20 Discharge Plan Patient Name[facility] [facility] 1935 Planned Disposition: Anticipated Discharge Date: Discharge Date: Expected LOS: Initial Reviewer: [email or web address] Initial Review Date: 01/01/2020 Generated: 01/06/20 11:17 am Patient Name: TONY MYERS Page [phone] at 1018 All edits/amendments must be made on the electronic document DICTATION DATE: 01/06/20 1017 PRODUCTION BROACHER: CRUZ 01/06/20 1017 RPT#: [id number] DC DATE: STATUS: ADM IN [facility] [address] [place] [address] END OF REPORT
--- NOTE | 2020-01-06 11:47 | MORECARE ---
CASE MANAGEMENT DISCHARGE SUMMARY PATIENT: TONY MYERS UNIT: [id number] ADM DATE: 01/01/20 AGE: 84 : 33 SEX: M ROOM/BED: D.2121 AUTHOR: ROSENDO OLGUIN PHYSICIAN: REFERRING PHYSICIAN: SHAQUILLE WILLIS MD DATE OF SERVICE: 01/06/20 Discharge Plan Patient Name: TONY MYERS [facility] [facility] 1935 Planned Disposition: Anticipated Discharge Date: Discharge Date: Expected LOS: Initial Reviewer: [email or web address] Initial Review Date: 01/01/2020 Generated: 01/06/20 12:47 pm DCPIA - Discharge Planning Initial Assessment Updated by [email or web address]: Jeannine Mejia on 01/06/20 11:41 am * Is the patient Alert and Oriented? Yes * How many steps to enter\exit or inside your home? 0/0 * PCP NICOLA * Pharmacy [facility] * Preadmission Environment Assisted Living * Facility Name [facility] * ADLs Independent * Equipment Cane Elevated [place] Seat Rolling Walker Shower Chair Walker * List name and contact numbers for known caregivers / representatives who currently or will assist patient after discharge: MAGDALENA [phone] TONY (SON)[phone] * Verbal permission to speak to the caregivers and representatives has been obtained from the patient. Yes * Community resources currently utilized Assisted Living * Please name any agencies selected above. [facility] * Additional services required to return to the preadmission environment? Yes * Can the patient safely return to the preadmission environment? No * Has this patient been hospitalized within the prior 30 days at any hospital? No Last DP export: 01/06/20 9:18 a Patient Name: TONY MYERS Page 94443 at 1147 All edits/amendments must be made on the electronic document DICTATION DATE: 01/06/20 1147 MANAGER MED SURG: CRUZ 01/06/20 1147 RPT#: [id number] DC DATE: STATUS: ADM IN [facility] [address] [place] [address] END OF REPORT
--- NOTE | 2020-01-06 12:06 | NUR ---
REHAB PRESCREENING Rehab referral received and chart reviewed. Mr. Merino is ambulating 250 feet. He is too high functioning to require 3 hours of therapy per day and does not meet admission criteria for Acute Inpatient Rehab. Thank you for this referral! Shreya Alonzo, [facility] HUNTER Rehab PD
--- NOTE | 2020-01-06 12:07 | MORECARE ---
CASE MANAGEMENT DISCHARGE SUMMARY PATIENT: TONY MYERS UNIT: [id number] ADM DATE: 01/01/20 AGE: 84 : 33 SEX: M ROOM/BED: D.9324 AUTHOR: ROSENDO OLGUIN PHYSICIAN: REFERRING PHYSICIAN: SHAQUILLE WILLIS MD DATE OF SERVICE: 01/06/20 Discharge Plan Patient Name: TONY MYERS Facility: [facility]:[place] : 1935 Planned Disposition: Anticipated Discharge Date: Discharge Date: Expected LOS: Initial Reviewer: [email or web address] Initial Review Date: 01/01/2020 Generated: 01/06/20 1:06 pm Comments DCP- Discharge Planning Updated by [email or web address]: Jeannine Mejia on 01/06/20 11:[address] Patient Name: TONY MYERS Admission Status: ER Accout number: [id number] Admission Date: 01-01-2020 : 1935 Admission Diagnosis:ACUTE KIDNEY FAILURE, UNSPECIFIED Attending: SHAQUILLE WILLIS Current LOS: 5 Anticipated DC Date: Planned Disposition: Primary Insurance: MEDICARE A & B Discharge Planning Comments: CM met with patient to complete initial dc planning assessment. CM educated patient on the CM role and verbal consent given by patient to complete assessment. CM verified patient's address, phone number, and emergency contact phone numbers. Patient lives at home at an assisted living facility ([facility]) alone. At discharge patient plans to return home and feels this is a safe discharge. CM discussed availability of home health, rehab services, and medical equipment. Patient states he has a rollator, and a cane. Pt complains of being weaker since admission. CM provided education about IP rehab and SNF. Patient and family in agreement with IP rehab at [facility] and [facility] for care when he returns home. VENITA signed for IP rehab at [facility], and [facility]. Patient denies other known discharge needs at this time. Transportation provider at discharge will be his daughter. CM will continue to follow and will assist as needed with dc plans/needs. Bone Worker: Jeannine Mejia DCPIA - Discharge Planning Initial Assessment Updated by [email or web address]: Jeannine Mejia on 01/06/20 11:41 am * Is the patient Alert and Oriented? Yes * How many steps to enter\exit or inside your home? 0/0 * PCP NICOLA * Pharmacy [facility] * Preadmission Environment Assisted Living * Facility Name [facility] * ADLs Independent * Equipment Cane Elevated [place] Seat Rolling Walker Shower Chair Walker * List name and contact numbers for known caregivers / representatives who currently or will assist patient after discharge: MAGDALENA [phone] TONY (SON)[phone] * Verbal permission to speak to the caregivers and representatives has been obtained from the patient. Yes * Community resources currently utilized Assisted Living * Please name any agencies selected above. [facility] * Additional services required to return to the preadmission environment? Yes * Can the patient safely return to the preadmission environment? No * Has this patient been hospitalized within the prior 30 days at any hospital? No Coverage Notice Reviewer: [id number] Saleem Mejia Notice Issued Date-Time: 01/06/2020 9:00 Notice Type: Patient Choice Letter Notice Delivered To: Patient Relationship to Patient: Country Director Name: Delivery Method: HAND - Hand Delivered Pia Days: Prior Verbal Notification: Yes Recipient Understood Notice: Yes Recipient Signature: Med Rec Note Co-signed by Attending: Coverage Notice Comment: ip rehab [facility], then [facility] when he gets home. Last DP export: 01/06/20 10:47 a Patient Name: TONY MYERS Page 68088 at 1207 All edits/amendments must be made on the electronic document DICTATION DATE: 01/06/20 1206 CRAFT COORDINATOR: CRUZ 01/06/20 1206 RPT#: [id number] DC DATE: STATUS: ADM IN [facility] [address] [place] [address] END OF REPORT
[2020-01-06 12:45] VITALS: BP 129/54
[2020-01-06 15:51] VITALS: BP 140/60
[2020-01-06 20:30] VITALS: BP 135/59
--- NOTE | 2020-01-07 04:35 | NUR ---
BED ALARM SOUNDING, NURSE ENTERED ROOM PT IS SITTING ON BSC, PT HAS BEEN AWAKE ALL NIGHT, PT UP AND DOWN SEVERAL TIMES FROM BED TO CHAIR. IV TO LEFT ARM OUT, TIP INTACT. PT STATED THAT HES NOT SURE HOW IT CAME OUT, FOUND PTS TELEMETRY BOX IN THE SHOWER. ASSISTED PT BACK TO HIS BED, PLACED A WARM SHAMPOO CAP ON PTS HEAD AND WASHED AND BRUSHED HAIR. RESITED IV TO RIGHT WRIST, 20 GUAGE. SECOND ATTEMPT, PT TOLERATED WELL. BATH GIVEN, LINENS CHANGE, PLACED PT BACK ON TELEMETRY. PLACED MEPILEX DRSG TO REDDEND COCCYX. BED LOW, CL IN REACH. BED ALARM ON.
[2020-01-07 04:49] LABS: BASOPHILS 0.1 % (0-2); EOSINOPHILS 1.4 % (0-7); HEMATOCRIT 28.6 % (42.0-54.0); HEMOGLOBIN 9.2 g/dL (13.5-17.5); IMMATURE GRANULOCYTES 0.4 % (0-5); LYMPHOCYTES 14.9 % (15-50); MCH 31.6 pg (26.0-34.0); MCHC 32.2 g/dL (31.0-37.0); MCV 98.3 fL (80.0-100.0); MEAN PLATELET VOLUME 9.9 fL (7.4-10.4); MONOCYTES 8.8 % (2-11); NEUTROPHILS 74.4 % (40-80); PLATELET COUNT 129 10x3/uL (130-400); RBC 2.91 10x6/uL (4.20-6.10); RDW 13.7 % (11.5-14.5); WBC 10.4 10x3/uL (4.8-10.8)
[2020-01-07 04:58] VITALS: BP 116/77
[2020-01-07 05:00] LABS: ANION GAP 12.7 mmol/L (8-16); CALCIUM 8.1 mg/dL (8.5-10.1); CARBON DIOXIDE 23.5 mmol/L (21.0-32.0); CREATININE - SERUM 6.5 mg/dL (0.6-1.3); MAGNESIUM - SERUM 1.9 mg/dL (1.8-2.4); PHOSPHOROUS 4.3 mg/dL (2.5-4.9); POTASSIUM - SERUM 5.2 mmol/L (3.5-5.1)
--- NOTE | 2020-01-07 08:26 | NUR ---
PT RECEIVED AWAKE AND ALERT. HAS BEEN UP MOST OF NIGHT. ASSISTED TO CHAIR WITH ALARM IN PLACE FOR BREAKFAST. MEDS GIVEN.
[2020-01-07 08:30] VITALS: BP 161/90
[2020-01-07 11:30] VITALS: BP 145/60
[2020-01-07 15:30] VITALS: BP 149/62
[2020-01-07 20:00] VITALS: BP 127/59
[2020-01-08] VITALS: BP 131/55
--- NOTE | 2020-01-08 00:46 | NUR ---
INITIAL ROUNDS COMPLETED AT 1915 HRS. PT RESTING WITH EYES CLOSED. RESP EVEN AND REGULAR. ASSESSMENT COMPLETED AT 2030 HRS. VSS. PACED RHYTHM PER CM HR 71. O2 2LNC. PT OPENS EYES TO VERBAL STIMULI, FOLLOWS COMMANDS THEN QUICKLY FALLS BACK TO SLEEP. LUNGS DIMINISHED IN BASES BILAT. FERNANDEZ. IV TO RFA SL. ABD SOFT WTIH ACTIVE BS NOTED. FERNANDEZ. PM MEDS GIVEN. PT CURRENTLY RSTING WTIH EYES CLOSED. RESP EVEN AND REGULAR. SR UP X2, CALL LIGHT WITHIN REACH AND BED ALARM ON.
--- NOTE | 2020-01-08 01:55 | NUR ---
PT REPOSITIONED IN BED FOR COMFORT. SR UP X2, CALL LIGHT WITHIN REACH AND BED ALARM ON.
[2020-01-08 04:00] VITALS: BP 135/62
--- NOTE | 2020-01-08 04:39 | NUR ---
PT AWAKE; DENIES ANY DISCOMFORT. SR UP X2, CALL LIGHT WITHIN REACH AND BED ALARM ON.
--- NOTE | 2020-01-08 06:01 | NUR ---
PT RESTED WELL DURING SHIFT. PACED RHYTHM PER CM. PT DENIED ANY DISCOMFORT. NEEDS MET;WILL CONTINUE TO MONITOR.
[2020-01-08 07:22] LABS: BASOPHILS 0.3 % (0-2); EOSINOPHILS 3.2 % (0-7); HEMATOCRIT 25.1 % (42.0-54.0); IMMATURE GRANULOCYTES 0.3 % (0-5); LYMPHOCYTES 21.7 % (15-50); MCH 31.7 pg (26.0-34.0); MCHC 31.9 g/dL (31.0-37.0); MCV 99.6 fL (80.0-100.0); MEAN PLATELET VOLUME 10.7 fL (7.4-10.4); MONOCYTES 12.6 % (2-11); NEUTROPHILS 61.9 % (40-80); PLATELET COUNT 138 10x3/uL (130-400); RBC 2.52 10x6/uL (4.20-6.10); RDW 13.8 % (11.5-14.5)
[2020-01-08 07:27] LABS: WBC 7.1 10x3/uL (4.8-10.8)
[2020-01-08 07:29] LABS: ANION GAP 12.5 mmol/L (8-16); CALCIUM 7.9 mg/dL (8.5-10.1); CARBON DIOXIDE 23.3 mmol/L (21.0-32.0); MAGNESIUM - SERUM 1.9 mg/dL (1.8-2.4); PHOSPHOROUS 4.7 mg/dL (2.5-4.9); POTASSIUM - SERUM 4.8 mmol/L (3.5-5.1)
[2020-01-08 09:38] VITALS: BP 135/76
--- NOTE | 2020-01-08 10:50 | NUR ---
1 UNIT PRBC STARTED. VS WNL. LINE IS PATENT.
--- NOTE | 2020-01-08 13:15 | NUR ---
BLOOD TRANSFUSION COMPLETED WITHOUT ADVERSE REACTION NOTED.
[2020-01-08 13:30] VITALS: BP 141/62
--- NOTE | 2020-01-08 18:28 | NUR ---
STOOL SPECIMEN COLLECTED AND TAKEN TO LAB. WILL MONITOR.
[2020-01-08 20:20] VITALS: BP 150/75
--- NOTE | 2020-01-08 20:30 | NUR ---
INITIAL ORUNDS COMPLETED AT 1850 HRS. PT DENIED ANY DISCOMFORT. PT HAD DIARRHEA AT 1925 HRS. BED, PT AND FLOOR CLEANED. ASSESSMENT COMPLETED AT 1930 HRS. VSS. PACED RHYTHM PER CM HR 74. PT ALERT, ORIENTED TO PERSON ONLY. IV TO R WRIST WITH D5NS AT 30CC/HR. IV PATENT. LUINGS DIMINISHED IN BASES BILAT. MEPILEX NOTED TO COCCYX. JACKSON DRAINING YELLOW URINE. SR UP X2, CALL LIGHT WITHIN REACH AND BED ALARM ON.
--- NOTE | 2020-01-08 22:27 | NUR ---
PM MEDS GIVEN WITHOUT DIFFICULTY. PT CURRENTLY RESTING WITH EYES CLOSED. RESP EVEN AND REGULAR. SR UP X2, CALL LIGHT WITHIN REACH AND BED ALARM ON.
--- NOTE | 2020-01-09 00:26 | NUR ---
VSS. PT RESTING WITH EYES CLOSED. RESP EVEN AND REGULAR. SR UP X2, CALL LIGHT WITHIN REACH.
--- NOTE | 2020-01-09 02:36 | NUR ---
PT AWAKE; THINKS IT IS TIME FOR BREAKFAST. REORIENTED TO TIME. SR UP X2, CALL LIGHT WITHIN REACH AND BED ALARM ON.
[2020-01-09 04:00] VITALS: BP 123/73
--- NOTE | 2020-01-09 04:05 | NUR ---
ASSISTED TO BR. PT MODERATE AMOUNT OF DIARRHEA. ASSISTED BACK TO BED. SR UP X2, CALL LIGHT WITHIN REACH AND BED ALARM ON.
[2020-01-09 05:23] LABS: BASOPHILS 0.1 % (0-2); HEMATOCRIT 28.9 % (42.0-54.0); HEMOGLOBIN 9.1 g/dL (13.5-17.5); IMMATURE GRANULOCYTES 0.2 % (0-5); LYMPHOCYTES 15.5 % (15-50); MCH 30.8 pg (26.0-34.0); MCHC 31.5 g/dL (31.0-37.0); MEAN PLATELET VOLUME 10.7 fL (7.4-10.4); MONOCYTES 8.5 % (2-11); NEUTROPHILS 73.7 % (40-80); PLATELET COUNT 151 10x3/uL (130-400); RBC 2.95 10x6/uL (4.20-6.10); RDW 14.7 % (11.5-14.5)
[2020-01-09 05:38] LABS: ANION GAP 14.3 mmol/L (8-16); CALCIUM 8.3 mg/dL (8.5-10.1); CARBON DIOXIDE 23.8 mmol/L (21.0-32.0); CREATININE - SERUM 5.5 mg/dL (0.6-1.3); MAGNESIUM - SERUM 1.9 mg/dL (1.8-2.4); PHOSPHOROUS 4.3 mg/dL (2.5-4.9); POTASSIUM - SERUM 5.1 mmol/L (3.5-5.1)
--- NOTE | 2020-01-09 06:07 | NUR ---
VSS THROUGHOUT NIGHT. DIARRHEA X2 DURING SHIFT. NEED MET; WILL CONTINUE TO MONITOR.
[2020-01-09 08:00] VITALS: BP 157/79
--- NOTE | 2020-01-09 10:24 | NUR ---
PT WALKED HALLWAY WITH P.T. USING WALKER.
[2020-01-09 11:00] VITALS: BP 157/75
[2020-01-09 15:00] VITALS: BP 105/78
--- NOTE | 2020-01-09 15:19 | NUR ---
PT MIN. ASSIST TO RECLINER CHAIR. VISITOR AT BEDSIDE. CL IN REACH. PT STATES HE HAS NO FURTHER NEEDS AT THIS TIME. WILL CONTINUE WITH POC.
--- NOTE | 2020-01-09 17:35 | NUR ---
I have reviewed this patient and I concur with the Shift Assessment completed by the Licensed Practical Nurse today this shift.
[2020-01-09 20:00] VITALS: BP 162/65
--- NOTE | 2020-01-09 20:28 | NUR ---
RECEIVED BEDSIDE REPORT AND ROUNDS COMPLETE. PATIENT IS ALERT AND ORIENTED, RESTING COMFPRTABLY IN BED. RESPIRATIONS ARE EVEN AND UNLABORED. NO S/S OF DISTRESS. NO C/O PAIN. CALL LIGHT WITHIN REACH. WILL CPOC.
[2020-01-10 00:59] VITALS: BP 146/67
[2020-01-10 05:04] LABS: BASOPHILS 0.3 % (0-2); EOSINOPHILS 1.6 % (0-7); HEMATOCRIT 29.1 % (42.0-54.0); IMMATURE GRANULOCYTES 0.3 % (0-5); MCH 30.5 pg (26.0-34.0); MCHC 30.9 g/dL (31.0-37.0); MCV 98.6 fL (80.0-100.0); MEAN PLATELET VOLUME 10.1 fL (7.4-10.4); MONOCYTES 9.4 % (2-11); NEUTROPHILS 74.4 % (40-80); PLATELET COUNT 144 10x3/uL (130-400); RBC 2.95 10x6/uL (4.20-6.10); RDW 14.4 % (11.5-14.5); WBC 6.9 10x3/uL (4.8-10.8)
[2020-01-10 05:11] VITALS: BP 161/73
[2020-01-10 05:31] LABS: % SATURATION 28 % (15-55); IRON 47 ug/dl (35-150); TOTAL IRON BIND CAPACITY 166 ug/dl (260-445); UNSAT IRON BIND CAPACITY 119 ug/dl (150-375)
[2020-01-10 05:47] LABS: ANION GAP 10.7 mmol/L (8-16); CALCIUM 8.3 mg/dL (8.5-10.1); CARBON DIOXIDE 23.9 mmol/L (21.0-32.0); CREATININE - SERUM 5.2 mg/dL (0.6-1.3); MAGNESIUM - SERUM 1.8 mg/dL (1.8-2.4); PHOSPHOROUS 4.2 mg/dL (2.5-4.9); POTASSIUM - SERUM 5.6 mmol/L (3.5-5.1)
[2020-01-10 08:00] VITALS: BP 171/90
--- NOTE | 2020-01-10 08:29 | MORECARE ---
CASE MANAGEMENT DISCHARGE SUMMARY PATIENT: TONY MYERS UNIT: [id number] ADM DATE: 01/01/20 AGE: 84 : 33 SEX: M ROOM/BED: D.3399 AUTHOR: ROSENDO OLGUIN PHYSICIAN: REFERRING PHYSICIAN: SHAQUILLE WILLIS MD DATE OF SERVICE: 01/10/20 Discharge Plan Patient Name: TONY MYERS Facility: [facility]:[place] : 1935 Planned Disposition: Home with Home Health Anticipated Discharge Date: Discharge Date: Expected LOS: Initial Reviewer: [email or web address] Initial Review Date: 01/01/2020 Generated: 01/10/20 9:29 am Comments DCP- Discharge Planning Updated by [email or web address]: Jeannine Mejia on 01/06/20 11:[address] Patient Name: TONY MYERS Admission Status: ER Accout number: [id number] Admission Date: 01-01-2020 : 1935 Admission Diagnosis:ACUTE KIDNEY FAILURE, UNSPECIFIED Attending: SHAQUILLE WILLIS Current LOS: 5 Anticipated DC Date: Planned Disposition: Primary Insurance: MEDICARE A & B Discharge Planning Comments: CM met with patient to complete initial dc planning assessment. CM educated patient on the CM role and verbal consent given by patient to complete assessment. CM verified patient's address, phone number, and emergency contact phone numbers. Patient lives at home at an assisted living facility ([place]) alone. At discharge patient plans to return home and feels this is a safe discharge. CM discussed availability of home health, rehab services, and medical equipment. Patient states he has a rollator, and a cane. Pt complains of being weaker since admission. CM provided education about IP rehab and SNF. Patient and family in agreement with IP rehab at [facility] and [facility] for care when he returns home. VENITA signed for IP rehab at [facility], and [facility]. Patient denies other known discharge needs at this time. Transportation provider at discharge will be his daughter. CM will continue to follow and will assist as needed with dc plans/needs. Grinder Set Up Operator: Jeannine Mejia DCPIA - Discharge Planning Initial Assessment Updated by [email or web address]: Jeannine Mejia on 01/06/20 11:41 am * Is the patient Alert and Oriented? Yes * How many steps to enter\exit or inside your home? 0/0 * PCP NIC[facility] * Pharmacy [facility] * Preadmission Environment Assisted Living * Facility Name [facility] * ADLs Independent * Equipment Cane Elevated [place] Seat Rolling Walker Shower Chair Walker * List name and contact numbers for known caregivers / representatives who currently or will assist patient after discharge: MAGDALENA [phone] TONY (SON)[phone] * Verbal permission to speak to the caregivers and representatives has been obtained from the patient. Yes * Community resources currently utilized Assisted Living * Please name any agencies selected above. [facility] * Additional services required to return to the preadmission environment? Yes * Can the patient safely return to the preadmission environment? No * Has this patient been hospitalized within the prior 30 days at any hospital? No Coverage Notice Reviewer: [id number] Saleem Mejia Notice Issued Date-Time: 01/06/2020 9:00 Notice Type: Patient Choice Letter Notice Delivered To: Patient Relationship to Patient: Manufacturing Project Engineer Name: Delivery Method: HAND - Hand Delivered Pia Days: Prior Verbal Notification: Yes Recipient Understood Notice: Yes Recipient Signature: Med Rec Note Co-signed by Attending: Coverage Notice Comment: ip rehab [facility], then [facility] when he gets home. Last DP export: 01/06/20 11:07 a Patient Name: TONY MYERS Page [id number] at 0829 All edits/amendments must be made on the electronic document DICTATION DATE: 01/10/20828 ASSOCIATE PROFESSOR OF CRIMINAL JUSTICE: CRUZ 01/10/20828 RPT#: [id number] DC DATE: STATUS: ADM IN [facility] [address] [place] [address] END OF REPORT
--- NOTE | 2020-01-10 08:51 | MORECARE ---
CASE MANAGEMENT DISCHARGE SUMMARY PATIENT: TONY MYERS UNIT: [id number] ADM DATE: 01/01/20 AGE: 84 : 33 SEX: M ROOM/BED: D.2122 AUTHOR: ROSENDO OLGUIN PHYSICIAN: REFERRING PHYSICIAN: SHAQUILLE WILLIS MD DATE OF SERVICE: 01/10/20 Discharge Plan Patient Name: TONY MYERS Facility: [facility]:[place] : 1935 Planned Disposition: Home with Home Health Anticipated Discharge Date: Discharge Date: Expected LOS: Initial Reviewer: [email or web address] Initial Review Date: 01/01/2020 Generated: 01/10/20 9:50 am Comments DCP- Discharge Planning Updated by [id number]: Jeannine Mejia on 01/10/20 7:[address] Patient Name: TONY MYERS Encounter No: [id number] : 1935 Primary Insurance: MEDICARE A & B Anticipated DC Date: Planned Disposition: Home with Home Health External Planned Provider: : DCP follow-up note: CM met with patient about dc plan. Pt continues to be independent of his needs. CM talked about group home and home health at [facility]. Patient states he is very happy at the assisted living facility and would like to return their with [facility] . VENITA signed for [facility] . CM spoke with Mary Ann at [phone] and faxed referral. Case management will follow and assist as needed. Jeannine Mejia DCP- Discharge Planning Updated by [email or web address]: Jeannine Mejia on 01/06/20 11:[address] Patient Name: TONY MYERS Admission Status: ER Accout number: [id number] Admission Date: 01-01-2020 : 1935 Admission Diagnosis:ACUTE KIDNEY FAILURE, UNSPECIFIED Attending: SHAQUILLE WILLIS Current LOS: 5 Anticipated DC Date: Planned Disposition: Primary Insurance: MEDICARE A & B Discharge Planning Comments: CM met with patient to complete initial dc planning assessment. CM educated patient on the CM role and verbal consent given by patient to complete assessment. CM verified patient's address, phone number, and emergency contact phone numbers. Patient lives at home at an assisted living facility ([place]) alone. At discharge patient plans to return home and feels this is a safe discharge. CM discussed availability of home health, rehab services, and medical equipment. Patient states he has a rollator, and a cane. Pt complains of being weaker since admission. CM provided education about IP rehab and SNF. Patient and family in agreement with IP rehab at [facility] and [facility] for care when he returns home. VENITA signed for IP rehab at [facility], and [facility]. Patient denies other known discharge needs at this time. Transportation provider at discharge will be his daughter. CM will continue to follow and will assist as needed with dc plans/needs. Mail Handler Assistant: Jeannine Mejia DCPIA - Discharge Planning Initial Assessment Updated by [id number]: Jeannine Mejia on 01/06/20 11:41 am * Is the patient Alert and Oriented? Yes * How many steps to enter\exit or inside your home? 0/0 * PCP [facility] * Pharmacy [facility] * Preadmission Environment Assisted Living * Facility Name [facility] * ADLs Independent * Equipment Cane Elevated [place] Seat Rolling Walker Shower Chair Walker * List name and contact numbers for known caregivers / representatives who currently or will assist patient after discharge: MAGDALENA [phone] TONY (SON)[phone] * Verbal permission to speak to the caregivers and representatives has been obtained from the patient. Yes * Community resources currently utilized Assisted Living * Please name any agencies selected above. [facility] * Additional services required to return to the preadmission environment? Yes * Can the patient safely return to the preadmission environment? No * Has this patient been hospitalized within the prior 30 days at any hospital? No Coverage Notice Reviewer: [id number] - Jeannnie Mejia Notice Issued Date-Time: 01/06/2020 9:00 Notice Type: Patient Choice Letter Notice Delivered To: Patient Relationship to Patient: Automobiles Salesperson Name: Delivery Method: HAND - Hand Delivered Pia Days: Prior Verbal Notification: Yes Recipient Understood Notice: Yes Recipient Signature: Med Rec Note Co-signed by Attending: Coverage Notice Comment: ip rehab [facility], then [facility] when he gets home. Last DP export: 01/10/20 7:29 am Patient Name: TONY MYERS Page [id number] at 0851 All edits/amendments must be made on the electronic document DICTATION DATE: 01/10/2050 BIOINFORMATICS SCIENTIST: CRUZ 01/10/2050 RPT#: [id number] DC DATE: STATUS: ADM IN [facility] [address] [place] [address] END OF REPORT
--- NOTE | 2020-01-10 08:58 | MORECARE ---
CASE MANAGEMENT DISCHARGE SUMMARY PATIENT: TONY MYERS UNIT: [id number] ADM DATE: 01/01/20 AGE: 84 : 33 SEX: M ROOM/BED: D.2122 AUTHOR: ROSENDO OLGUIN PHYSICIAN: REFERRING PHYSICIAN: SHAQUILLE WILLIS MD DATE OF SERVICE: 01/10/20 Discharge Plan Patient Name: TONY MYERS Facility: [facility]:[place] : 1935 Planned Disposition: Home with Home Health Anticipated Discharge Date: Discharge Date: Expected LOS: Initial Reviewer: [email or web address] Initial Review Date: 01/01/2020 Generated: 01/10/20 9:58 am Comments DCP- Discharge Planning Updated by [email or web address]: Jeannine Mejia on 01/10/20 7:[address] Patient Name: TONY MYERS Encounter No: [id number] : 1935 Primary Insurance: MEDICARE A & B Anticipated DC Date: Planned Disposition: Home with Home Health External Planned Provider: : DCP follow-up note: CM met with patient about dc plan. Pt continues to be independent of his needs. CM talked about [facility] and home health at [facility]. Patient states he is very happy at the assisted living facility and would like to return their with [facility] . VENITA signed for [facility] . CM spoke with Mary Ann at [phone] and faxed referral. Case management will follow and assist as needed. Jeannine Mejia DCP- Discharge Planning Updated by [email or web address]: Jeannine Mejia on 01/06/20 11:[address] Patient Name: TONY MYERS Admission Status: ER Accout number: [id number] Admission Date: 01-01-2020 : 1935 Admission Diagnosis:ACUTE KIDNEY FAILURE, UNSPECIFIED Attending: SHAQUILLE WILLIS Current LOS: 5 Anticipated DC Date: Planned Disposition: Primary Insurance: MEDICARE A & B Discharge Planning Comments: CM met with patient to complete initial dc planning assessment. CM educated patient on the CM role and verbal consent given by patient to complete assessment. CM verified patient's address, phone number, and emergency contact phone numbers. Patient lives at home at an assisted living facility ([place]) alone. At discharge patient plans to return home and feels this is a safe discharge. CM discussed availability of home health, rehab services, and medical equipment. Patient states he has a rollator, and a cane. Pt complains of being weaker since admission. CM provided education about IP rehab and SNF. Patient and family in agreement with IP rehab at [facility] and [facility] for care when he returns home. VENITA signed for IP rehab at [facility], and [facility]. Patient denies other known discharge needs at this time. Transportation provider at discharge will be his daughter. CM will continue to follow and will assist as needed with dc plans/needs. Hris Analyst: Jeannine Mejia DCPIA - Discharge Planning Initial Assessment Updated by [id number]: Jeannine Mejia on 01/06/20 11:41 am * Is the patient Alert and Oriented? Yes * How many steps to enter\exit or inside your home? 0/0 * PCP [facility] * Pharmacy [facility] * Preadmission Environment Assisted Living * Facility Name [facility] * ADLs Independent * Equipment Cane Elevated [place] Seat Rolling Walker Shower Chair Walker * List name and contact numbers for known caregivers / representatives who currently or will assist patient after discharge: MAGDALENA [phone] TONY (SON)[phone] * Verbal permission to speak to the caregivers and representatives has been obtained from the patient. Yes * Community resources currently utilized Assisted Living * Please name any agencies selected above. [facility] * Additional services required to return to the preadmission environment? Yes * Can the patient safely return to the preadmission environment? No * Has this patient been hospitalized within the prior 30 days at any hospital? No External Providers [id number] [place] Next Contact Date: Service Request Date: Service Type: Resolution: Reviewer: Comments: Coverage Notice Reviewer: [id number] - Jeannine Mejia Notice Issued Date-Time: 01/06/2020 9:00 Notice Type: Patient Choice Letter Notice Delivered To: Patient Relationship to Patient: Photovoltaic Installer Name: Delivery Method: HAND - Hand Delivered Pia Days: Prior Verbal Notification: Yes Recipient Understood Notice: Yes Recipient Signature: Med Rec Note Co-signed by Attending: Coverage Notice Comment: ip rehab [facility], then [facility] when he gets home. Last DP export: 01/10/20 7:51 am Patient Name: TONY MYERS Page [id number] at 0858 All edits/amendments must be made on the electronic document DICTATION DATE: 01/10/20857 ASSOCIATE MEDIA DIRECTOR: CRUZ 01/10/20857 RPT#: [id number] DC DATE: STATUS: ADM IN [facility] [address] [place] [address] END OF REPORT
--- NOTE | 2020-01-10 10:07 | MORECARE ---
CASE MANAGEMENT DISCHARGE SUMMARY PATIENT: TONY MYERS UNIT: [id number] ADM DATE: 01/01/20 AGE: 84 : 33 SEX: M ROOM/BED: D.2122 AUTHOR: ROSENDO OLGUIN PHYSICIAN: REFERRING PHYSICIAN: SHAQUILLE WILLIS MD DATE OF SERVICE: 01/10/20 Discharge Plan Patient Name: TONY MYERS Facility: [facility]:[place] : 1935 Planned Disposition: Home with Home Health Anticipated Discharge Date: Discharge Date: Expected LOS: Initial Reviewer: [email or web address] Initial Review Date: 01/01/2020 Generated: 01/10/20 11:06 am Comments DCP- Discharge Planning Updated by [id number]: Jeannine Mejia on 01/10/20 7:[address] Patient Name: TONY MYERS Encounter No: [id number] : 1935 Primary Insurance: MEDICARE A & B Anticipated DC Date: Planned Disposition: Home with Home Health External Planned Provider: : DCP follow-up note: CM met with patient about dc plan. Pt continues to be independent of his needs. CM talked about [facility] and home health at [facility]. Patient states he is very happy at the assisted living facility and would like to return their with [facility] . VENITA signed for [facility] . CM spoke with Mary Ann at [phone] and faxed referral. Case management will follow and assist as needed. Jeannine Mejia DCP- Discharge Planning Updated by [id number]: Jeannine Mejia on 01/06/20 11:[address] Patient Name: TONY MYERS Admission Status: ER Accout number: [id number] Admission Date: 01-01-2020 : 1935 Admission Diagnosis:ACUTE KIDNEY FAILURE, UNSPECIFIED Attending: SHAQUILLE WILLIS Current LOS: 5 Anticipated DC Date: Planned Disposition: Primary Insurance: MEDICARE A & B Discharge Planning Comments: CM met with patient to complete initial dc planning assessment. CM educated patient on the CM role and verbal consent given by patient to complete assessment. CM verified patient's address, phone number, and emergency contact phone numbers. Patient lives at home at an assisted living facility ([place]) alone. At discharge patient plans to return home and feels this is a safe discharge. CM discussed availability of home health, rehab services, and medical equipment. Patient states he has a rollator, and a cane. Pt complains of being weaker since admission. CM provided education about IP rehab and SNF. Patient and family in agreement with IP rehab at [facility] and [facility] for care when he returns home. VENITA signed for IP rehab at [facility], and [facility]. Patient denies other known discharge needs at this time. Transportation provider at discharge will be his daughter. CM will continue to follow and will assist as needed with dc plans/needs. Flame Brazing Machine Operator: Jeannine Mejia DCPIA - Discharge Planning Initial Assessment Updated by [email or web address]: Jeannine Mejia on 01/06/20 11:41 am * Is the patient Alert and Oriented? Yes * How many steps to enter\exit or inside your home? 0/0 * PCP [facility] * Pharmacy [facility] * Preadmission Environment Assisted Living * Facility Name [facility] * ADLs Independent * Equipment Cane Elevated [place] Seat Rolling Walker Shower Chair Walker * List name and contact numbers for known caregivers / representatives who currently or will assist patient after discharge: MAGDALENA [phone] TONY (SON)[phone] * Verbal permission to speak to the caregivers and representatives has been obtained from the patient. Yes * Community resources currently utilized Assisted Living * Please name any agencies selected above. [facility] * Additional services required to return to the preadmission environment? Yes * Can the patient safely return to the preadmission environment? No * Has this patient been hospitalized within the prior 30 days at any hospital? No External Providers External Provider: [facility] Next Contact Date: Service Request Date: Service Type: Resolution: Reviewer: Comments: Coverage Notice Reviewer: [id number] - Jeannine Mejia Notice Issued Date-Time: 01/06/2020 9:00 Notice Type: Patient Choice Letter Notice Delivered To: Patient Relationship to Patient: Compacting Machine Operator/Tender Name: Delivery Method: HAND - Hand Delivered Pia Days: Prior Verbal Notification: Yes Recipient Understood Notice: Yes Recipient Signature: Med Rec Note Co-signed by Attending: Coverage Notice Comment: ip rehab [facility], then [facility] when he gets home. Last DP export: 01/10/20 7:58 am Patient Name: TONY MYERS Page [phone] at 1007 All edits/amendments must be made on the electronic document DICTATION DATE: 01/10/20 100 WEDGER AND GLUER: CRUZ 01/10/201005 RPT#: [id number] DC DATE: STATUS: ADM IN [facility] [address] [place] [address] END OF REPORT
--- NOTE | 2020-01-10 10:25 | MORECARE ---
CASE MANAGEMENT DISCHARGE SUMMARY PATIENT: TONY MYERS UNIT: [id number] ADM DATE: 01/01/20 AGE: 84 : 33 SEX: M ROOM/BED: D.8749 AUTHOR: CLAUDOC PHYSICIAN: REFERRING PHYSICIAN: SHAQUILLE WILLIS MD DATE OF SERVICE: 01/10/20 Discharge Plan Patient Name: TONY MYERS Facility: [facility]:[place] : 1935 Planned Disposition: Home with Home Health Anticipated Discharge Date: Discharge Date: Expected LOS: Initial Reviewer: [email or web address] Initial Review Date: 01/01/2020 Generated: 01/10/20 11:24 am Comments DCP- Discharge Planning Updated by [email or web address]: Jeannine Mejia on 01/10/20 9:[address] Patient Name: TONY MYERS Encounter No: [id number] : 1935 Primary Insurance: MEDICARE A & B Anticipated DC Date: Planned Disposition: Home with Home Health External Planned Provider: : DCP follow-up note: CM called Emmy at [facility] at [phone] and updated condition. [facility] stated they are not able to accept the patient back with a vogel, and do not allow home health. States they are a small assisted living facility and do not have 24 hour nursing services. VIVIAN spoke with Mr Myers and updated conversation with [facility]. Pt stated he did not know what to do. VIVIAN Called Roxie his daughter at [phone]. Roxie became very upset. States she was promised he would go to rehab. Updated Roxie on rehab requirements. Ms Faustin states he can not go home with a vogel. States he did not have this before. States she feels he is not ready for DC. CM spoke with Roxie about finding alternative DC plans to ensure the DC is safe and will accommodate his needs. Roxie questioned if she needed to pick her father up today. States she did not know where to find a hospital bed at short notice. Educated Roxie on DC planning. Stated we are not kicking him out, just working together to find a DC plan. Cm spoke of . Roxie states she would like CM to send a referral to [facility] to Belén. CM called Belén at [phone] and faxed referral to [phone]. Case management will follow and assist as needed. Jeannine Mejia DCP- Discharge Planning Updated by [email or web address]: Jeannine Mejia on 01/10/20 7:[address] Patient Name: TONY MYERS Encounter No: [id number] : 1935 Primary Insurance: MEDICARE A & B Anticipated DC Date: Planned Disposition: Home with Home Health External Planned Provider: : DCP follow-up note: CM met with patient about dc plan. Pt continues to be independent of his needs. CM talked about [facility] and home health at [facility]. Patient states he is very happy at the assisted living facility and would like to return their with [facility]. VENITA signed for [facility]. CM spoke with Mary Ann at [phone] and faxed referral. Case management will follow and assist as needed. Jeannine Mejia DCP- Discharge Planning Updated by [email or web address]: Jeannine Mejia on 01/06/20 11:[address] Patient Name: TONY MYERS Admission Status: ER Accout number: [id number] Admission Date: 01-01-2020 : 1935 Admission Diagnosis:ACUTE KIDNEY FAILURE, UNSPECIFIED Attending: SHAQUILLE WILLIS Current LOS: 5 Anticipated DC Date: Planned Disposition: Primary Insurance: MEDICARE A & B Discharge Planning Comments: CM met with patient to complete initial dc planning assessment. CM educated patient on the CM role and verbal consent given by patient to complete assessment. CM verified patient's address, phone number, and emergency contact phone numbers. Patient lives at home at an assisted living facility ([facility]) alone. At discharge patient plans to return home and feels this is a safe discharge. CM discussed availability of home health, rehab services, and medical equipment. Patient states he has a rollator, and a cane. Pt complains of being weaker since admission. CM provided education about IP rehab and SNF. Patient and family in agreement with IP rehab at [facility] and [facility] for care when he returns home. VENITA signed for IP rehab at [facility], and [facility]. Patient denies other known discharge needs at this time. Transportation provider at discharge will be his daughter. CM will continue to follow and will assist as needed with dc plans/needs. Senior Electronics Engineer: Jeannine Mejia DCPIA - Discharge Planning Initial Assessment Updated by [email or web address]: Jeannine Mejia on 01/06/20 11:41 am * Is the patient Alert and Oriented? Yes * How many steps to enter\exit or inside your home? 0/0 * PCP NICOLA * [facility] * Preadmission Environment Assisted Living * Facility Name [facility] * ADLs Independent * Equipment Cane Elevated Tol[place] Seat Rolling Walker Shower Chair Walker * List name and contact numbers for known caregivers / representatives who currently or will assist patient after discharge: ROXIE [phone] TONY (SON)[phone] * Verbal permission to speak to the caregivers and representatives has been obtained from the patient. Yes * Community resources currently utilized Assisted Living * Please name any agencies selected above. [facility] * Additional services required to return to the preadmission environment? Yes * Can the patient safely return to the preadmission environment? No * Has this patient been hospitalized within the prior 30 days at any hospital? No Coverage Notice Reviewer: [id number] - Jeannine Mejia Notice Issued Date-Time: 01/06/2020 9:00 Notice Type: Patient Choice Letter Notice Delivered To: Patient Relationship to Patient: Test Preparation Tutor Name: Delivery Method: HAND - Hand Delivered Pia Days: Prior Verbal Notification: Yes Recipient Understood Notice: Yes Recipient Signature: Med Rec Note Co-signed by Attending: Coverage Notice Comment: ip rehab [facility], then [facility] when he gets home. Last DP export: 01/10/20 9:07 am Patient Name: TONY MYERS Page 93937 at 1025 All edits/amendments must be made on the electronic document DICTATION DATE: 01/10/20 1024 BACTERIOLOGY TEACHER: CRUZ 01/10/20 1024 RPT#: [id number] DC DATE: STATUS: ADM IN [facility] [address] [place] [address] END OF REPORT
[2020-01-10 11:00] VITALS: BP 137/86
--- NOTE | 2020-01-10 11:53 | MORECARE ---
CASE MANAGEMENT DISCHARGE SUMMARY PATIENT: TONY MYERS UNIT: [id number] ADM DATE: 01/01/20 AGE: 84 : 33 SEX: M ROOM/BED: D.2122 AUTHOR: ROSENDO OLGUIN PHYSICIAN: REFERRING PHYSICIAN: SHAQUILLE WILLIS MD DATE OF SERVICE: 01/10/20 Discharge Plan Patient Name: TONY MYERS Facility: [facility]:[place] : 1935 Planned Disposition: Home with Home Health Anticipated Discharge Date: Discharge Date: Expected LOS: Initial Reviewer: [email or web address] Initial Review Date: 01/01/2020 Generated: 01/10/20 12:53 pm Comments DCP- Discharge Planning Updated by [email or web address]: Jeannine Mejia on 01/10/20 10:[address] Patient Name: TONY MYERS Encounter No: [id number] : 1935 Primary Insurance: MEDICARE A & B Anticipated DC Date: Planned Disposition: [facility] Facility External Planned Provider: : DCP follow-up note: Belén from [facility] called and stated she will accept the patient but will require a neg covid test. Covid test was ordered with results pending for tomorrow. Belén states she does not accept admissions past 2 pm, and will need to anticipate transportation by 10 am. VIVIAN called Roxie (DTR) at [phone]. Patient and family in agreement with discharge plan. No changes to plan. Case management will follow and assist as needed. Jeannine Mejia DCP- Discharge Planning Updated by [email or web address]: Jeannine Mejia on 01/10/20 9:[address] Patient Name: TONY MYERS Encounter No: [id number] : 1935 Primary Insurance: MEDICARE A & B Anticipated DC Date: Planned Disposition: Home with Home Health External Planned Provider: : DCP follow-up note: CM called Emmy at [facility] at [phone] and updated condition. [facility] are not able to accept the patient back with a vogel, and do not allow home health. States they are a small assisted living facility and do not have 24 hour nursing services. CM spoke with Mr Myers and updated conversation with [facility]. Pt stated he did not know what to do. CM Called Roxie his daughter at [phone]. Roxie became very upset. States she was promised he would go to rehab. Updated Roxie on rehab requirements. Ms Faustin states he can not go home with a vogel. States he did not have this before. States she feels he is not ready for DC. CM spoke with Roxie about finding alternative DC plans to ensure the DC is safe and will accommodate his needs. Roxie questioned if she needed to pick her father up today. States she did not know where to find a hospital bed at short notice. Educated Roxie on DC planning. Stated we are not kicking him out, just working together to find a DC plan. Cm spoke of [facility]. Roxie states she would like CM to send a referral to [facility] to [facility]. CM called [facility] at [phone] and faxed referral to [phone]. Case management will follow and assist as needed. Jeannine Mejia DCP- Discharge Planning Updated by [email or web address]: Jeannine Mejia on 01/10/20 7:[address] Patient Name: TONY MYERS Encounter No: [id number] : 1935 Primary Insurance: MEDICARE A & B Anticipated DC Date: Planned Disposition: Home with Home Health External Planned Provider: : DCP follow-up note: CM met with patient about dc plan. Pt continues to be independent of his needs. CM talked about snf and home health at [facility]. Patient states he is very happy at the assisted living facility and would like to return their with [facility]. VENITA signed for [facility]. CM spoke with Mary Ann at [phone] and faxed referral. Case management will follow and assist as needed. Jeannine Mejia DCP- Discharge Planning Updated by [email or web address]: Jeannine Mejia on 01/06/20 11:[address] Patient Name: TONY MYERS Admission Status: ER Accout number: [id number] Admission Date: 01-01-2020 : 1935 Admission Diagnosis:ACUTE KIDNEY FAILURE, UNSPECIFIED Attending: SHAQUILLE WILLIS Current LOS: 5 Anticipated DC Date: Planned Disposition: Primary Insurance: MEDICARE A & B Discharge Planning Comments: CM met with patient to complete initial dc planning assessment. CM educated patient on the CM role and verbal consent given by patient to complete assessment. CM verified patient's address, phone number, and emergency contact phone numbers. Patient lives at home at an assisted living facility ([facility]) alone. At discharge patient plans to return home and feels this is a safe discharge. CM discussed availability of home health, rehab services, and medical equipment. Patient states he has a rollator, and a cane. Pt complains of being weaker since admission. CM provided education about IP rehab and SNF. Patient and family in agreement with IP rehab at [facility] and [facility] for care when he returns home. VENITA signed for IP rehab at [facility], and [facility]. Patient denies other known discharge needs at this time. Transportation provider at discharge will be his daughter. CM will continue to follow and will assist as needed with dc plans/needs. Airport Screener: Jeannine Mejia DCPIA - Discharge Planning Initial Assessment Updated by [email or web address]: Jeannine Mejia on 01/06/20 11:41 am * Is the patient Alert and Oriented? Yes * How many steps to enter\exit or inside your home? 0/0 * PCP NICOLA * [facility] * Preadmission Environment Assisted Living * Facility Name [facility] * ADLs Independent * Equipment Cane Elevated [place] Seat Rolling Walker Shower Chair Walker * List name and contact numbers for known caregivers / representatives who currently or will assist patient after discharge: ROXIE [phone] TONY (SON)[phone] * Verbal permission to speak to the caregivers and representatives has been obtained from the patient. Yes * Community resources currently utilized Assisted Living * Please name any agencies selected above. [facility] * Additional services required to return to the preadmission environment? Yes * Can the patient safely return to the preadmission environment? No * Has this patient been hospitalized within the prior 30 days at any hospital? No Coverage Notice Reviewer: [id number] - Jeannine Mejia Notice Issued Date-Time: 01/06/2020 9:00 Notice Type: Patient Choice Letter Notice Delivered To: Patient Relationship to Patient: Food Or Baggage Handling [place] Name: Delivery Method: HAND - Hand Delivered Pia Days: Prior Verbal Notification: Yes Recipient Understood Notice: Yes Recipient Signature: Med Rec Note Co-signed by Attending: Coverage Notice Comment: ip rehab [facility], then [facility] when he gets home. Last DP export: 01/10/20 9:25 am Patient Name: TONY MYERS Page 30156 at 1153 All edits/amendments must be made on the electronic document DICTATION DATE: 01/10/20 115 SUPERVISOR TYPE PHOTOGRAPHY: CRUZ 01/10/20 1153 RPT#: [id number] DC DATE: STATUS: ADM IN [facility] [address] [place] [address] END OF REPORT
--- NOTE | 2020-01-10 13:19 | NUR ---
Nutrition Follow-up: Pt reports no appetite; did not eat breakfast this AM but drank some Nepro. Denies N/V. Awaiting placement. Diet: Renal, Mech Soft, Nepro BID PO intake: 21% avg x 6 meals No new wt; last wt: 211# (01/02) Last BM: 01/09 Labs noted: K+ 5.6, Ca 8.3 Meds noted: Lasix, Kayexalate, Protonix, D5NS @ 30 -Encourage PO intake and honor food preferences within diet restrictions. -Pt may benefit from an appetite stimulant. -Need new wt; noted daily wts ordered. -RD following.
[2020-01-10 14:27] LABS: ANION GAP 14.7 mmol/L (8-16); CALCIUM 8.1 mg/dL (8.5-10.1); CARBON DIOXIDE 22.6 mmol/L (21.0-32.0); POTASSIUM - SERUM 5.3 mmol/L (3.5-5.1)
[2020-01-10 15:00] VITALS: BP 179/86
--- NOTE | 2020-01-10 18:19 | NUR ---
LAB CALLED AND PT IS COVID NEG.
[2020-01-10 20:00] VITALS: BP 120/90
[2020-01-11] VITALS: BP 118/85
[2020-01-11 04:00] VITALS: BP 155/66
--- NOTE | 2020-01-11 04:05 | NUR ---
I have reviewed this patient and I concur with the Shift Assessment completed by the Licensed Practical Nurse today this shift.
[2020-01-11 04:54] LABS: BASOPHILS 0.1 % (0-2); EOSINOPHILS 2.2 % (0-7); HEMATOCRIT 27.2 % (42.0-54.0); HEMOGLOBIN 8.6 g/dL (13.5-17.5); IMMATURE GRANULOCYTES 0.3 % (0-5); LYMPHOCYTES 21.9 % (15-50); MCH 30.9 pg (26.0-34.0); MCHC 31.6 g/dL (31.0-37.0); MCV 97.8 fL (80.0-100.0); MEAN PLATELET VOLUME 10.2 fL (7.4-10.4); MONOCYTES 9.4 % (2-11); NEUTROPHILS 66.1 % (40-80); PLATELET COUNT 142 10x3/uL (130-400); RBC 2.78 10x6/uL (4.20-6.10); RDW 14.1 % (11.5-14.5); WBC 6.7 10x3/uL (4.8-10.8)
[2020-01-11 05:11] LABS: ANION GAP 12.1 mmol/L (8-16); CALCIUM 7.9 mg/dL (8.5-10.1); CARBON DIOXIDE 25.2 mmol/L (21.0-32.0); CREATININE - SERUM 4.7 mg/dL (0.6-1.3); MAGNESIUM - SERUM 1.8 mg/dL (1.8-2.4); PHOSPHOROUS 5.1 mg/dL (2.5-4.9)
[2020-01-11 05:13] LABS: POTASSIUM - SERUM 4.3 mmol/L (3.5-5.1)
[2020-01-11 09:04] VITALS: BP 124/85
--- NOTE | 2020-01-11 09:19 | NUR ---
0914-I CALLED ROBERTH AT DR ESCOBEDO OFFICE FOR DISCHARGE ORDERS. I MADE HER AWARE THAT THE FAMILY ALREADY CALLED THE ALF AND THE VAN IS IN ROUTE WITHOUT A DISCHARGE ORDER.
--- NOTE | 2020-01-11 09:29 | NUR ---
ROBERTH FROM DR ESCOBEDO OFFICE TO CALL BACK AND STATES THAT PATIENT IS SERVICES OF DR ALVARADO. DR ESCOBEDO WAS MED BOWLING BALL WEIGHER AND PACKER. I SAW Eric ADAME APN WITH [facility] AND MADE HER AWARE OF NEEDING DISCHARGE.
[2020-01-11] MEDS ORDERED: CALMOSEPTINE OI71 GM TOPICAL (09:32)
--- NOTE | 2020-01-11 09:34 | MORECARE ---
CASE MANAGEMENT DISCHARGE SUMMARY PATIENT: TONY MYERS UNIT: [id number] ADM DATE: 01/01/20 AGE: 84 : 31 SEX: M ROOM/BED: D.2122 AUTHOR: ROSENDO OLGUIN PHYSICIAN: REFERRING PHYSICIAN: SHAQUILLE WILLIS MD DATE OF SERVICE: 01/11/20 Discharge Plan Patient Name: TONY MYERS Facility: [facility]:[place] : 1935 Planned Disposition: Home with Home Health Anticipated Discharge Date: Discharge Date: Expected LOS: Initial Reviewer: [email or web address] Initial Review Date: 01/01/2020 Generated: 01/11/20 10:33 am Comments DCP- Discharge Planning Updated by [email or web address]: Jeannine Mejia on 01/11/20 8:[address] Patient Name: TONY MYERS Encounter No: [id number] : 1935 Primary Insurance: MEDICARE A & B Anticipated DC Date: Planned Disposition: Home with Home Health External Planned Provider: : DCP follow-up note: vivian spoke with Belén at [facility]. Belén stated Roxie has called and stated the patient has been dc and set up transportation. Belén stated the van is in route. CM stated we are currently working on DC. Report can be called to Leonora at [phone] into room 308. The patient will go to a [facility] bed. Patient and family in agreement with discharge plan. No changes to plan. Case management will follow and assist as needed. Jeannine Mejia DCP- Discharge Planning Updated by [email or web address]: Jeannine Mejia on 01/10/20 10:[address] Patient Name: TONY MYERS Encounter No: [id number] : 1935 Primary Insurance: MEDICARE A & B Anticipated DC Date: Planned Disposition: Group Home Facility External Planned Provider: : DCP follow-up note: Belén from [facility] called and stated she will accept the patient but will require a neg covid test. Covid test was ordered with results pending for tomorrow. Bleén states she does not accept admissions past 2 pm, and will need to anticipate transportation by 10 am. VIVIAN called Roxie (DTR) at [phone]. Patient and family in agreement with discharge plan. No changes to plan. Case management will follow and assist as needed. Jeannine Mejia DCP- Discharge Planning Updated by [email or web address]: Jeannine Mejia on 01/10/20 9:[address] Patient Name: TONY MYERS Encounter No: [id number] : 1935 Primary Insurance: MEDICARE A & B Anticipated DC Date: Planned Disposition: Home with Home Health External Planned Provider: : DCP follow-up note: CM called Emmy at [facility] at [phone] and updated condition. [facility] stated they are not able to accept the patient back with a vogel, and do not allow home health. States they are a small assisted living facility and do not have 24 hour nursing services. CM spoke with Mr Myers and updated conversation with [facility]. Pt stated he did not know what to do. CM Called Roxie his daughter at [phone]. Roxie became very upset. States she was promised he would go to rehab. Updated Roxie on rehab requirements. Ms Faustin states he can not go home with a vogel. States he did not have this before. States she feels he is not ready for DC. CM spoke with Roxie about finding alternative DC plans to ensure the DC is safe and will accommodate his needs. Roxie questioned if she needed to pick her father up today. States she did not know where to find a hospital bed at short notice. Educated Roxie on DC planning. Stated we are not kicking him out, just working together to find a DC plan. Vivian spoke of SNF. Roxie states she would like CM to send a referral to [facility] to [facility]. CM called Belén at [phone] and faxed referral to [phone]. Case management will follow and assist as needed. Jeannine Mejia DCP- Discharge Planning Updated by [email or web address]: Jeannine Mejia on 01/10/20 7:[address] Patient Name: TONY MYERS Encounter No: [id number] : 1935 Primary Insurance: MEDICARE A & B Anticipated DC Date: Planned Disposition: Home with Home Health External Planned Provider: : DCP follow-up note: CM met with patient about dc plan. Pt continues to be independent of his needs. CM talked about half-way and home health at [facility]. Patient states he is very happy at the assisted living facility and would like to return their with [facility]. VENITA signed for [facility]. CM spoke with Mary Ann at [phone] and faxed referral. Case management will follow and assist as needed. Jeannine Mejia DCP- Discharge Planning Updated by [email or web address]: Jeannine Mejia on 01/06/20 11:[address] Patient Name: TONY MYERS Admission Status: ER Accout number: [id number] Admission Date: 01-01-2020 : 1935 Admission Diagnosis:ACUTE KIDNEY FAILURE, UNSPECIFIED Attending: SHAQUILLE WILLIS Current LOS: 5 Anticipated DC Date: Planned Disposition: Primary Insurance: MEDICARE A & B Discharge Planning Comments: CM met with patient to complete initial dc planning assessment. CM educated patient on the CM role and verbal consent given by patient to complete assessment. CM verified patient's address, phone number, and emergency contact phone numbers. Patient lives at home at an assisted living facility ([facility]) alone. At discharge patient plans to return home and feels this is a safe discharge. CM discussed availability of home health, rehab services, and medical equipment. Patient states he has a rollator, and a cane. Pt complains of being weaker since admission. CM provided education about IP rehab and SNF. Patient and family in agreement with IP rehab at [facility] and [facility] for care when he returns home. VENITA signed for IP rehab at [facility], and [facility]. Patient denies other known discharge needs at this time. Transportation provider at discharge will be his daughter. CM will continue to follow and will assist as needed with dc plans/needs. Consulting Engineer: Jeannine Mejia DCPIA - Discharge Planning Initial Assessment Updated by [email or web address]: Jeannine Mejia on 01/06/20 11:41 am * Is the patient Alert and Oriented? Yes * How many steps to enter\exit or inside your home? 0/0 * PCP NICOLA * Pharmacy [facility] * Preadmission Environment Assisted Living * Facility Name [facility] * ADLs Independent * Equipment Cane Elevated Toliet Seat Rolling Walker Shower Chair Walker * List name and contact numbers for known caregivers / representatives who currently or will assist patient after discharge: ROXIE [phone] TONY (SON)[phone] * Verbal permission to speak to the caregivers and representatives has been obtained from the patient. Yes * Community resources currently utilized Assisted Living * Please name any agencies selected above. [facility] * Additional services required to return to the preadmission environment? Yes * Can the patient safely return to the preadmission environment? No * Has this patient been hospitalized within the prior 30 days at any hospital? No Coverage Notice Reviewer: [id number] - Jeannine Mejia Notice Issued Date-Time: 01/06/2020 9:00 Notice Type: Patient Choice Letter Notice Delivered To: Patient Relationship to Patient: Zipper Lining Folder Name: Delivery Method: HAND - Hand Delivered Pia Days: Prior Verbal Notification: Yes Recipient Understood Notice: Yes Recipient Signature: Med Rec Note Co-signed by Attending: Coverage Notice Comment: ip rehab NP, then [facility] when he gets home. Last DP export: 01/10/20 10:53 am Patient Name: TONY MYERS Page 70169 at 0934 All edits/amendments must be made on the electronic document DICTATION DATE: 01/11/20932 ASSOCIATE SCIENTIST: CRUZ 01/11/20932 RPT#: [id number] DC DATE: STATUS: ADM IN [facility] [address] [place] [address] END OF REPORT
--- NOTE | 2020-01-11 10:35 | NUR ---
PT DISCHARGED TO [place]. REPORT CALLED. PIV REMOVED WITH CATHETER TIP FULLY INTACT. TELEMETRY REMOVED AND RETURNED. PT SIGNED PROPER DISCHARGE INSTRUCTIONS AND REMOVED ALL VALUABLES FROM THE ROOM.
--- NOTE | 2020-01-11 17:13 | MORECARE ---
CASE MANAGEMENT DISCHARGE SUMMARY PATIENT: TONY MYERS UNIT: [id number] ADM DATE: 01/01/20 AGE: 84 : 31 SEX: M ROOM/BED: D.2121 AUTHOR: ROSENDO OLGUIN PHYSICIAN: REFERRING PHYSICIAN: SHAQUILLE WILLIS MD DATE OF SERVICE: 01/11/20 Discharge Plan Patient Name: TONY MYERS Facility: [facility]:[place] : 1935 Planned Disposition: Home with Home Health Anticipated Discharge Date: Discharge Date: 01/11/2020 Expected LOS: Initial Reviewer: [email or web address] Initial Review Date: 01/01/2020 Generated: 01/11/20 6:12 pm Comments DCP- Discharge Planning Updated by [email or web address]: Jeannine Mejia on 01/11/20 8:[address] Patient Name: TONY MYERS Encounter No: [id number] : 1935 Primary Insurance: MEDICARE A & B Anticipated DC Date: Planned Disposition: Home with Home Health External Planned Provider: : DCP follow-up note: rio spoke with Belén at [facility]. Belén stated Roxie has called and stated the patient has been dc and set up transportation. Belén stated the van is in route. CM stated we are currently working on DC. Report can be called to Leonora at [phone] into room 308. The patient will go to a [facility] bed. Patient and family in agreement with discharge plan. No changes to plan. Case management will follow and assist as needed. Jeannine Mejia DCP- Discharge Planning Updated by [id number]: Jeannine Mejia on 01/10/20 10:[address] Patient Name: TONY MYERS Encounter No: [id number] : 1935 Primary Insurance: MEDICARE A & B Anticipated DC Date: Planned Disposition: Longterm Facility External Planned Provider: : DCP follow-up note: Belén from [facility] called and stated she will accept the patient but will require a neg covid test. Covid test was ordered with results pending for tomorrow. Belén states she does not accept admissions past 2 pm, and will need to anticipate transportation by 10 am. RIO called Roxie (DTR) at [phone]. Patient and family in agreement with discharge plan. No changes to plan. Case management will follow and assist as needed. Jeannine Mejia DCP- Discharge Planning Updated by [email or web address]: Jeannine Mejia on 01/10/20 9:[address] Patient Name: TONY MYERS Encounter No: [id number] : 1935 Primary Insurance: MEDICARE A & B Anticipated DC Date: Planned Disposition: Home with Home Health External Planned Provider: : DCP follow-up note: CM called Emmy at [facility] at [phone] and updated condition. [facility] stated they are not able to accept the patient back with a vogel, and do not allow home health. States they are a small assisted living facility and do not have 24 hour nursing services. CM spoke with Mr Myers and updated conversation with [facility]. Pt stated he did not know what to do. CM Called Roxie his daughter at [phone]. Roxie became very upset. States she was promised he would go to rehab. Updated Roxie on rehab requirements. Ms Faustin states he can not go home with a vogel. States he did not have this before. States she feels he is not ready for DC. CM spoke with Roxie about finding alternative DC plans to ensure the DC is safe and will accommodate his needs. Roxie questioned if she needed to pick her father up today. States she did not know where to find a hospital bed at short notice. Educated Roxie on DC planning. Stated we are not kicking him out, just working together to find a DC plan. Rio spoke of SNF. Roxie states she would like CM to send a referral to [facility] to [facility]. CM called Belén at [phone] and faxed referral to [phone]. Case management will follow and assist as needed. Jeannine Mejia DCP- Discharge Planning Updated by [email or web address]: Jeannine Mejia on 01/10/20 7:[address] Patient Name: TONY MYERS Encounter No: [id number] : 1935 Primary Insurance: MEDICARE A & B Anticipated DC Date: Planned Disposition: Home with Home Health External Planned Provider: : DCP follow-up note: CM met with patient about dc plan. Pt continues to be independent of his needs. CM talked about group home and home health at [facility]. Patient states he is very happy at the assisted living facility and would like to return their with [facility]. VENITA signed for [facility]. CM spoke with Mary Ann at [phone] and faxed referral. Case management will follow and assist as needed. Jeannine Mejia DCP- Discharge Planning Updated by [email or web address]: Jeannine Mejia on 01/06/20 11:[address] Patient Name: TONY MYERS Admission Status: ER Accout number: [id number] Admission Date: 01-01-2020 : 1935 Admission Diagnosis:ACUTE KIDNEY FAILURE, UNSPECIFIED Attending: SHAQUILLE WILLIS Current LOS: 5 Anticipated DC Date: Planned Disposition: Primary Insurance: MEDICARE A & B Discharge Planning Comments: CM met with patient to complete initial dc planning assessment. CM educated patient on the CM role and verbal consent given by patient to complete assessment. CM verified patient's address, phone number, and emergency contact phone numbers. Patient lives at home at an assisted living facility ([facility]) alone. At discharge patient plans to return home and feels this is a safe discharge. CM discussed availability of home health, rehab services, and medical equipment. Patient states he has a rollator, and a cane. Pt complains of being weaker since admission. CM provided education about IP rehab and SNF. Patient and family in agreement with IP rehab at [facility] and [facility] for care when he returns home. VENITA signed for IP rehab at [facility], and [facility]. Patient denies other known discharge needs at this time. Transportation provider at discharge will be his daughter. CM will continue to follow and will assist as needed with dc plans/needs. Stave Inspector: Jeannine Mejia DCPIA - Discharge Planning Initial Assessment Updated by [email or web address]: Jeannine Mejia on 01/06/20 11:41 am * Is the patient Alert and Oriented? Yes * How many steps to enter\exit or inside your home? 0/0 * PCP [facility] * Pharmacy [facility] * Preadmission Environment Assisted Living * Facility Name [facility] * ADLs Independent * Equipment Cane Elevated [place] Seat Rolling Walker Shower Chair Walker * List name and contact numbers for known caregivers / representatives who currently or will assist patient after discharge: ROXIE [phone] TONY (SON)[phone] * Verbal permission to speak to the caregivers and representatives has been obtained from the patient. Yes * Community resources currently utilized Assisted Living * Please name any agencies selected above. [facility] * Additional services required to return to the preadmission environment? Yes * Can the patient safely return to the preadmission environment? No * Has this patient been hospitalized within the prior 30 days at any hospital? No Coverage Notice Reviewer: [id number] Saleem Mejia Notice Issued Date-Time: 01/06/2020 9:00 Notice Type: Patient Choice Letter Notice Delivered To: Patient Relationship to Patient: New Car Make Ready Mechanic Name: Delivery Method: HAND - Hand Delivered Pia Days: Prior Verbal Notification: Yes Recipient Understood Notice: Yes Recipient Signature: Med Rec Note Co-signed by Attending: Coverage Notice Comment: ip rehab [facility], then [facility] when he gets home. Last DP export: 01/11/20 8:34 am Patient Name: TONY MYERS Page [id number] at [id number] All edits/amendments must be made on the electronic document DICTATION DATE: 01/11/201711 SOFTWARE ENGINEER WEB SERVICES: CRUZ 01/11/201711 RPT#: [id number] DC DATE:01/11/20 STATUS: DIS IN [facility] [address] [place] [address] END OF REPORT
== END 2020-01-11 10:36 | DRG 314 ==
LOC: D.ER 21:59 → D.M2 01-01 00:40
PROVIDERS: Family Medicine; Internal Medicine Nephrology; ADMIT Emergency Medicine; ATTEND Emergency Medicine
DX: I95.9 Hypotension, unspecified (principal); N17.0 Acute kidney failure with tubular necrosis; I48.19 Other persistent atrial fibrillation; I50.20 Unspecified systolic (congestive) heart failure; D69.6 Thrombocytopenia, unspecified; G30.9 Alzheimer's disease, unspecified; F02.80 Dementia in other diseases classified elsewhere, unspecified severity, without behavioral disturbance, psychotic disturbance, mood disturbance, and anxiety; F32.9 Major depressive disorder, single episode, unspecified; N40.0 Benign prostatic hyperplasia without lower urinary tract symptoms; I11.0 Hypertensive heart disease with heart failure; Z95.0 Presence of cardiac pacemaker; E04.1 Nontoxic single thyroid nodule; D64.9 Anemia, unspecified; K21.9 Gastro-esophageal reflux disease without esophagitis